=== PATIENT | female | born 1970 | race Caucasian/White ===

== ENCOUNTER 2019-08-28 15:48 | Emergency (ER) | payer OTHER ==
[~2019-08-28] VITALS: Ht 177.8 cm; Wt 127.0 kg
[~2019-08-28 15:48] MED LIST: ALBIPROI INH; ALBU90I INH; ALPR1 PO; Bactrim Ds Tab1 EACH PO; Benadryl 50 mg50 MG PO; CEPH500 PO; CHLGLU.12S; CLIN300 PO; CODGUAEL PO; CRUTCH4 USE; CYCL10 PO; Cleocin HCl300 MG PO; DOXY100 PO; DOXYCYCLINE; DULO30 PO; Esgic Tablet1 EACH PO; FLUSAL1005 IH; INDO25; LEVSOD75 PO; LORA1 PO; MICRONOR; NAPR500 PO; OXYACE5T PO; OXYC30ER PO; OXYC5 PO; PARO30 PO; PRED20 PO; PROM25 PO; Prednisone20 MG PO; RXCLIN PO; SULTRIDS PO; VANCOMYCIN; VERA80 PO; Ventolin/Prove6.7 GM INH; Zestril PO
[2019-08-28] MEDS ORDERED: Monodox100 MG PO (16:46)
[2019-08-28 16:53] LABS: BASOPHILS ABSOLUTE AUTO 0.03 K/mm3 (0.00-0.23); BASOPHILS PERCENT AUTO 0 % (0-2); EOSINOPHILS ABSOLUTE AUTO 0.43 K/mm3 (0.00-0.68); EOSINOPHILS PERCENT AUTO 5 % (0-6); Hematocrit 40.2 % (33.0-51.0); Hemoglobin 13.1 g/dL (11.5-16.0); IMMATURE GRAN ABSOLUTE AUTO 0.02 K/mm3 (0.00-0.10); IMMATURE GRAN PERCENT AUTO 0 % (0-1); LYMPHOCYTES ABSOLUTE AUTO 2.28 K/mm3 (0.84-5.20); LYMPHOCYTES PERCENT AUTO 27 % (21-46); MONOCYTES ABSOLUTE AUTO 0.53 K/mm3 (0.16-1.47); MONOCYTES PERCENT AUTO 6 % (4-13); Mean Corpuscular HGB 29.9 pg (26.0-34.0); Mean Corpuscular HGB Conc 32.6 g/dL (31.5-36.5); Mean Corpuscular Volume 92 fL (80-100); Mean Platelet Volume 10.4 fL (9.1-12.4); NEUTROPHILS ABSOLUTE AUTO 5.14 K/mm3 (1.96-9.15); NEUTROPHILS PERCENT AUTO 61 % (41-73); Platelet Count 259 K/mm3 (150-400); RDW Coefficient Variation 12.8 % (11.7-14.2); RDW Standard Deviation 43.1 fL (35.1-46.3); Red Blood Cell Count 4.38 M/mm3 (3.80-5.20); White Blood Cell Count 8.43 K/mm3 (4.00-11.30)
[2019-08-28 17:16] LABS: Alanine Aminotransfer (ALT/SGP 17 U/L (12-78); Albumin, Blood 3.7 g/dL (3.4-5.0); Albumin/Globulin Ratio 0.9 (0.8-1.8); Alk Phos 100 U/L (50-136); Anion Gap 4 mmol/L (6-16); Aspartate Aminotrans (AST/SGOT 20 U/L (12-37); Bilirubin, Total 0.4 mg/dL (0.1-1.0); Blood Urea Nitrogen 13 mg/dL (8-24); Bun/Creatinine Ratio 16.4 (12.0-20.0); CO2, Blood 28 mmol/L (21-32); Calcium, Blood 9.3 mg/dL (8.5-10.1); Chloride, Blood 106 mmol/L (98-108); Creatinine, Blood 0.79 mg/dL (0.40-1.00); Glomerular Filtration Rate >60 (60-); Glucose, Blood 70 mg/dL (70-99); Potassium, Blood 3.5 mmol/L (3.5-5.5); Sodium, Blood 138 mmol/L (136-145); Total Protein, Blood 7.7 g/dL (6.4-8.2)
== END 2019-08-28 17:03 | disposition home or self-care (01) ==
LOC: ER 15:48
PROVIDERS: Nurse Practitioner
DX: L03.115 Cellulitis of right lower limb (principal); J45.909 Unspecified asthma, uncomplicated; I10 Essential (primary) hypertension; Z88.0 Allergy status to penicillin; Z87.891 Personal history of nicotine dependence
CPT/HCPCS: 36415; 80053; 85025; 99283

== ENCOUNTER 2020-07-17 14:31 | Emergency (ER) | payer OTHER ==
[~2020-07-17 14:31] MED LIST changes: +ACETAMINOPHEN500 MG PO; +IBUP800 PO; +Monodox100 MG PO
== END 2020-07-17 16:16 | disposition left against medical advice (07) ==
LOC: ER 14:31
DX: Z53.21 Procedure and treatment not carried out due to patient leaving prior to being seen by health care provider (principal)

== ENCOUNTER 2020-09-17 00:11 | Emergency (ER) | payer OTHER ==
[~2020-09-17] VITALS: Ht 177.8 cm; Wt 103.0 kg
[2020-09-17] MEDS ORDERED: WATER PILL (00:35)
[2020-09-17] MEDS ORDERED: GABA100 PO (00:35)
== END 2020-09-17 02:42 | disposition home or self-care (01) ==
LOC: ER 00:11
DX: M25.511 Pain in right shoulder (principal); Z79.84 Long term (current) use of oral hypoglycemic drugs; Z79.899 Other long term (current) drug therapy; W10.9XXA Fall (on) (from) unspecified stairs and steps, initial encounter
CPT/HCPCS: 73562-LT; 99283-25

== ENCOUNTER 2021-03-03 10:26 | Inpatient (IN) | payer OTHER ==
[~2021-03-03] VITALS: Ht 177.8 cm; Wt 103.4 kg
[~2021-03-03 10:26] MED LIST changes: +GABA100 PO; +WATER PILL
[2021-03-03 11:52] LABS: Influenza A Negative (NEGATIVE); Influenza B Negative (NEGATIVE)
[2021-03-03 12:19] LABS: SARS-Cov-2 (COVID-19) PCR, MMC NEGATIVE (NEGATIVE)
[2021-03-03 13:32] LABS: BASOPHILS ABSOLUTE AUTO 0.03 K/mm3 (0.00-0.23); BASOPHILS PERCENT AUTO 0 % (0-2); EOSINOPHILS ABSOLUTE AUTO 0.58 K/mm3 (0.00-0.68); EOSINOPHILS PERCENT AUTO 5 % (0-6); Hematocrit 21.5 % (33.0-51.0); IMMATURE GRAN ABSOLUTE AUTO 0.05 K/mm3 (0.00-0.10); IMMATURE GRAN PERCENT AUTO 0 % (0-1); LYMPHOCYTES ABSOLUTE AUTO 1.12 K/mm3 (0.84-5.20); LYMPHOCYTES PERCENT AUTO 10 % (21-46); MONOCYTES ABSOLUTE AUTO 0.61 K/mm3 (0.16-1.47); MONOCYTES PERCENT AUTO 5 % (4-13); Mean Corpuscular HGB 27.7 pg (26.0-34.0); Mean Corpuscular HGB Conc 32.6 g/dL (31.5-36.5); Mean Corpuscular Volume 85 fL (80-100); Mean Platelet Volume 9.5 fL (9.1-12.4); NEUTROPHILS ABSOLUTE AUTO 9.19 K/mm3 (1.96-9.15); NEUTROPHILS PERCENT AUTO 79 % (41-73); Platelet Count 278 K/mm3 (150-400); RDW Coefficient Variation 13.9 % (11.7-14.2); RDW Standard Deviation 42.8 fL (35.1-46.3); Red Blood Cell Count 2.53 M/mm3 (3.80-5.20); White Blood Cell Count 11.58 K/mm3 (4.00-11.30)
[2021-03-03 13:56] LABS: Albumin, Blood 1.9 g/dL (3.4-5.0); Albumin/Globulin Ratio 0.4 (0.8-1.8); Bilirubin, Total 0.4 mg/dL (0.1-1.0); Calcium, Blood 7.8 mg/dL (8.5-10.1); Creatinine, Blood 4.76 mg/dL (0.40-1.00); Potassium, Blood 2.6 mmol/L (3.5-5.5); Total Protein, Blood 6.9 g/dL (6.4-8.2)
[2021-03-03] MEDS ORDERED: FURO20 PO (15:22)
[2021-03-03 17:35] LABS: IMMATURE RETIC FRACTION 17.5 % (2.3-16.0); RETICULOCYTE ABSOLUTE 0.035 M/mm3 (0.0200-0.1100); RETICULOCYTE COUNT PERCENT 1.49 % (0.50-2.50)
[2021-03-03 17:48] LABS: International Normalized Ratio 0.96; Prothrombin Time Results 10.4 Sec (9.7-11.5)
[2021-03-03 18:11] LABS: Magnesium, Blood 1.5 mg/dL (1.6-2.4); Percent Saturation 9.9 % (15.0-50.0)
--- NOTE | 2021-03-03 19:00 | NUR ---
Assumed care Received report from Gabriella ED RN. Patient arrived via gurney with 1 bag of personal belonging and cell phone. Settled to room. Second bag of NS and first K-rider infusing to LH IV. Self transferred to bed. Reports chills and requesting warm blanket. Temp checked, afebrile. Up to bedside commode c SBA. UA collected and sent to pharmacy. Urine appears yellow-orange with a tinge of pink. There is a oneill ordered, patient reports no issues with urinating. Called Dr. Harper to clarify this order. Received T.O. to bladder scan d/t MARGARITA, if > 300cc, place oneill otherwise may d/c oneill. Call light near, bed alarm on, bed in lowest position.
[2021-03-03 19:58] LABS: BASOPHILS ABSOLUTE AUTO 0.03 K/mm3 (0.00-0.23); BASOPHILS PERCENT AUTO 0 % (0-2); EOSINOPHILS ABSOLUTE AUTO 0.67 K/mm3 (0.00-0.68); EOSINOPHILS PERCENT AUTO 6 % (0-6); Hemoglobin 6.6 g/dL (11.5-16.0); IMMATURE GRAN ABSOLUTE AUTO 0.05 K/mm3 (0.00-0.10); IMMATURE GRAN PERCENT AUTO 0 % (0-1); LYMPHOCYTES ABSOLUTE AUTO 1.37 K/mm3 (0.84-5.20); LYMPHOCYTES PERCENT AUTO 11 % (21-46); MONOCYTES ABSOLUTE AUTO 0.69 K/mm3 (0.16-1.47); MONOCYTES PERCENT AUTO 6 % (4-13); Mean Corpuscular HGB 27.6 pg (26.0-34.0); Mean Corpuscular HGB Conc 31.4 g/dL (31.5-36.5); Mean Corpuscular Volume 88 fL (80-100); Mean Platelet Volume 9.4 fL (9.1-12.4); NEUTROPHILS ABSOLUTE AUTO 9.38 K/mm3 (1.96-9.15); NEUTROPHILS PERCENT AUTO 77 % (41-73); Platelet Count 259 K/mm3 (150-400); RDW Coefficient Variation 14.1 % (11.7-14.2); RDW Standard Deviation 45.4 fL (35.1-46.3); Red Blood Cell Count 2.39 M/mm3 (3.80-5.20); White Blood Cell Count 12.19 K/mm3 (4.00-11.30)
[2021-03-03 20:14] LABS: Bun/Creatinine Ratio 13.5 (12.0-20.0); Calcium, Blood 7.1 mg/dL (8.5-10.1); Creatinine, Blood 4.53 mg/dL (0.40-1.00); Potassium, Blood 3.2 mmol/L (3.5-5.5)
[2021-03-03 20:15] LABS: Appearance, Urine Turbid (Clear); Bilirubin, Urine Neg (Neg); Blood, Urine 5+ (Neg); Color, Urine Brown (P-Yellow); Glucose Qualitative, Urine Neg (Neg); Ketones, Urine Neg (Neg); Leukocyte Esterase, Urine 1+ (Neg); Nitrite, Urine Neg (Neg); Protein, Urine 4+ (Neg); Specific Gravity, Urine 1.015 (1.003-1.022); Urobilinogen, Urine NORM (Normal)
[2021-03-03 20:33] LABS: Amorphous Light (0-Heavy); Bacteria Many /hpf; Red Blood Cells, Urine 50-100 /hpf (0-2); Squamous Epithelial Cells Mod /hpf (Few)
[2021-03-03 20:36] LABS: U Amphetamine Screen DETECTED; U Barbituate Screen Not Detected; U Benzodiazapine Screen Not Detected; U Buprenorphine Screen Not Detected; U Cannabinoids Screen Not Detected; U Cocaine Screen Not Detected; U Methadone Screen Not Detected; U Methamphetamine Screen Not Detected; U Opiates Screen Not Detected; U Oxycodone Screen Not Detected; U Phencyclidine Screen Not Detected; U Propoxyphene Screen Not Detected
--- NOTE | 2021-03-04 00:13 | NUR ---
PATIENT COMPLAINS OF TENDERNESS AT IV SITE. LINE REMOVED.
--- NOTE | 2021-03-04 04:38 | NUR ---
RECEIVED PATIENT IN BED AAOX3. SHE DENIES ANY DISCOMFORT. IVF INFUSING. KCL IV NOT GIVEN PER MD'S ORDER. KCL PO GIVEN. TYLENOL GIVEN FOR INCREASED TEMP. PATIENT IS AFEBRILE NOW. 1 UNIT OF PRBC TRANSFUSED. LUNGS WITH DIMINISHED BREATH SOUNDS. OCCASIONAL NON-PRODUCTIVE COUGH. PATIENT IS AT TIMES RESTLESS, ANXIOUS, EASILY IRRITATED. ASSISTED WITH ADLS FOR COMFORT. SAFETY ROUNDS IN PROGRESS. NO ACUTE DISTRESS.
[2021-03-04 05:33] LABS: BASOPHILS ABSOLUTE AUTO 0.03 K/mm3 (0.00-0.23); BASOPHILS PERCENT AUTO 0 % (0-2); EOSINOPHILS ABSOLUTE AUTO 0.93 K/mm3 (0.00-0.68); EOSINOPHILS PERCENT AUTO 7 % (0-6); Hematocrit 22.6 % (33.0-51.0); Hemoglobin 7.4 g/dL (11.5-16.0); IMMATURE GRAN ABSOLUTE AUTO 0.06 K/mm3 (0.00-0.10); IMMATURE GRAN PERCENT AUTO 1 % (0-1); LYMPHOCYTES ABSOLUTE AUTO 1.75 K/mm3 (0.84-5.20); LYMPHOCYTES PERCENT AUTO 14 % (21-46); MONOCYTES ABSOLUTE AUTO 0.74 K/mm3 (0.16-1.47); MONOCYTES PERCENT AUTO 6 % (4-13); Mean Corpuscular HGB 28.2 pg (26.0-34.0); Mean Corpuscular HGB Conc 32.7 g/dL (31.5-36.5); Mean Corpuscular Volume 86 fL (80-100); Mean Platelet Volume 9.5 fL (9.1-12.4); NEUTROPHILS ABSOLUTE AUTO 9.17 K/mm3 (1.96-9.15); NEUTROPHILS PERCENT AUTO 72 % (41-73); Platelet Count 283 K/mm3 (150-400); RDW Coefficient Variation 14.3 % (11.7-14.2); RDW Standard Deviation 44.7 fL (35.1-46.3); Red Blood Cell Count 2.62 M/mm3 (3.80-5.20); White Blood Cell Count 12.68 K/mm3 (4.00-11.30)
[2021-03-04 05:59] LABS: Bun/Creatinine Ratio 13.2 (12.0-20.0); Calcium, Blood 7.6 mg/dL (8.5-10.1); Creatinine, Blood 4.63 mg/dL (0.40-1.00); Potassium, Blood 3.2 mmol/L (3.5-5.5)
[2021-03-04 10:11] LABS: Hematocrit 20.4 % (33.0-51.0); Hemoglobin 6.7 g/dL (11.5-16.0)
[2021-03-04 10:19] LABS: C DIFFICILE DNA NEGATIVE (Negative)
[2021-03-04 10:52] LABS: Stool Occult Blood Guaiac 1 Neg (Neg)
[2021-03-04 16:58] LABS: Appearance, Urine Hazy (Clear); Bilirubin, Urine Neg (Neg); Blood, Urine 5+ (Neg); Color, Urine Amber (P-Yellow); Glucose Qualitative, Urine Neg (Neg); Ketones, Urine Neg (Neg); Leukocyte Esterase, Urine 1+ (Neg); Nitrite, Urine Neg (Neg); Protein, Urine 3+ (Neg); Urobilinogen, Urine NORM (Normal)
[2021-03-04 17:17] LABS: Bacteria Mod /hpf; Red Blood Cells, Urine 50-100 /hpf (0-2); Squamous Epithelial Cells Few /hpf (Few)
[2021-03-04 17:18] LABS: Amorphous Light (0-Heavy); Mucus Light (0-Heavy)
--- NOTE | 2021-03-04 18:39 | NUR ---
SHIFT SUMMARY: NO ACUTE EVENTS. NO EVENTS ON TELEMETRY, SR 80-90'S. STOOL NEGATIVE FOR BLOOD. 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 PRBC'S TRANSFUSING NOW, WILL NEED LABS DRAWN AFTER, POWERGLIDE IN PERRI DRAWS SLUGGISHLY. UP TO BSC WITH 1 PERSON ASSIST. A&O X 2, STRANGE AFFECT. DR NOGUERA SAW PATIENT THIS AFTERNOON.
[2021-03-04 20:43] LABS: BASOPHILS ABSOLUTE AUTO 0.04 K/mm3 (0.00-0.23); BASOPHILS PERCENT AUTO 0 % (0-2); EOSINOPHILS ABSOLUTE AUTO 0.74 K/mm3 (0.00-0.68); EOSINOPHILS PERCENT AUTO 6 % (0-6); Hematocrit 22.2 % (33.0-51.0); Hemoglobin 7.3 g/dL (11.5-16.0); IMMATURE GRAN ABSOLUTE AUTO 0.07 K/mm3 (0.00-0.10); IMMATURE GRAN PERCENT AUTO 1 % (0-1); LYMPHOCYTES ABSOLUTE AUTO 1.08 K/mm3 (0.84-5.20); LYMPHOCYTES PERCENT AUTO 9 % (21-46); MONOCYTES ABSOLUTE AUTO 0.76 K/mm3 (0.16-1.47); MONOCYTES PERCENT AUTO 6 % (4-13); Mean Corpuscular HGB 28.2 pg (26.0-34.0); Mean Corpuscular HGB Conc 32.9 g/dL (31.5-36.5); Mean Corpuscular Volume 86 fL (80-100); Mean Platelet Volume 9.7 fL (9.1-12.4); NEUTROPHILS ABSOLUTE AUTO 9.21 K/mm3 (1.96-9.15); NEUTROPHILS PERCENT AUTO 77 % (41-73); Platelet Count 214 K/mm3 (150-400); RDW Coefficient Variation 14.6 % (11.7-14.2); RDW Standard Deviation 45.4 fL (35.1-46.3); Red Blood Cell Count 2.59 M/mm3 (3.80-5.20)
[2021-03-04 20:46] LABS: Bun/Creatinine Ratio 12.7 (12.0-20.0); Calcium, Blood 7.6 mg/dL (8.5-10.1); Creatinine, Blood 4.89 mg/dL (0.40-1.00); Potassium, Blood 3.2 mmol/L (3.5-5.5)
[2021-03-04 21:01] LABS: Magnesium, Blood 1.6 mg/dL (1.6-2.4)
[2021-03-05 05:53] LABS: BASOPHILS ABSOLUTE AUTO 0.03 K/mm3 (0.00-0.23); BASOPHILS PERCENT AUTO 0 % (0-2); EOSINOPHILS ABSOLUTE AUTO 0.96 K/mm3 (0.00-0.68); EOSINOPHILS PERCENT AUTO 7 % (0-6); IMMATURE GRAN ABSOLUTE AUTO 0.08 K/mm3 (0.00-0.10); IMMATURE GRAN PERCENT AUTO 1 % (0-1); LYMPHOCYTES ABSOLUTE AUTO 1.24 K/mm3 (0.84-5.20); LYMPHOCYTES PERCENT AUTO 9 % (21-46); MONOCYTES ABSOLUTE AUTO 0.92 K/mm3 (0.16-1.47); MONOCYTES PERCENT AUTO 7 % (4-13); Mean Corpuscular HGB 28.4 pg (26.0-34.0); Mean Corpuscular HGB Conc 33.1 g/dL (31.5-36.5); Mean Corpuscular Volume 86 fL (80-100); Mean Platelet Volume 9.3 fL (9.1-12.4); NEUTROPHILS ABSOLUTE AUTO 10.43 K/mm3 (1.96-9.15); NEUTROPHILS PERCENT AUTO 76 % (41-73); Platelet Count 251 K/mm3 (150-400); RDW Coefficient Variation 14.7 % (11.7-14.2); RDW Standard Deviation 45.7 fL (35.1-46.3); Red Blood Cell Count 1.97 M/mm3 (3.80-5.20); White Blood Cell Count 13.66 K/mm3 (4.00-11.30)
[2021-03-05 06:00] LABS: Hematocrit 16.9 % (33.0-51.0)
[2021-03-05 06:01] LABS: Hemoglobin 5.6 g/dL (11.5-16.0)
--- NOTE | 2021-03-05 06:13 | NUR ---
RECEIVED CALL FROM LAB REGARDING CRITICAL HEMOGLOBIN AND HEMATOCRIT. DR. DAVIES MADE AWARE. ORDER GIVEN FOR RED BLOOD CELL. PATIENT'S CONDITION STABLE. NO SIGNS OF BLEEDING NOTED.
[2021-03-05 06:20] LABS: Albumin, Blood 1.6 g/dL (3.4-5.0); Anion Gap 12 mmol/L (6-16); Blood Urea Nitrogen 62 mg/dL (8-24); Bun/Creatinine Ratio 12.3 (12.0-20.0); CO2, Blood 22 mmol/L (21-32); Calcium, Blood 7.6 mg/dL (8.5-10.1); Chloride, Blood 106 mmol/L (98-108); Creatinine, Blood 5.06 mg/dL (0.40-1.00); Glomerular Filtration Rate 9 (60-); Glucose, Blood 101 mg/dL (70-99); Phosphorus, Blood 5.5 mg/dL (2.5-4.9); Sodium, Blood 140 mmol/L (136-145); Uric Acid, Blood 6.6 mg/dL (2.6-6.0)
--- NOTE | 2021-03-05 06:26 | NUR ---
RECEIVED PATIENT IN BED AAOX3. SHE DENIES ANY DISCOMFORT. LUNGS WITH DIMINISHED BREATH SOUNDS. INTERMITTENT MOIST NON-PRODUCTIVE COUGH REMAINS. UA COLLECTED AND SENT. DR. DAVIES NOTIFIED OF CRITICAL HEMOGLOBIN AND HEMATOCRIT. 2 UNITS OF PRBC TO BE TRANSFUSED. NO S/S OF BLEEDING NOTED. WILL CONTINUE TO MONITOR.
--- NOTE | 2021-03-05 15:31 | NUR ---
SHIFT SUMMARY: PT ALERT AND ORIENTED TO ALL EXXCEPT DAY OF MONTH. PT ABLE TO MAKE NEEDS KNOWN. TRANSFERS INDEPENDENTLY TO BEDSIDE COMMODE. PT RECEIVED 2 UNITS PRBC AND POTASSIUM REPLACEMENT. PT NAPPING INTERMITTENTLY THROUGHOUT MY SHIFT.
[2021-03-05 17:32] LABS: Hematocrit 27.4 % (33.0-51.0); Hemoglobin 8.9 g/dL (11.5-16.0); Mean Corpuscular HGB 27.5 pg (26.0-34.0); Mean Corpuscular HGB Conc 32.5 g/dL (31.5-36.5); Mean Corpuscular Volume 85 fL (80-100); RDW Coefficient Variation 16.4 % (11.7-14.2); RDW Standard Deviation 50.6 fL (35.1-46.3); Red Blood Cell Count 3.24 M/mm3 (3.80-5.20)
[2021-03-05 17:38] LABS: Mean Platelet Volume 10.3 fL (9.1-12.4); Platelet Count 241 K/mm3 (150-400)
[2021-03-05 17:56] LABS: Magnesium, Blood 1.7 mg/dL (1.6-2.4); Phosphorus, Blood 5.4 mg/dL (2.5-4.9)
[2021-03-05 17:58] LABS: Bilirubin, Direct 0.3 mg/dL (0.0-0.3); Bilirubin, Indirect 0.3 mg/dL (0.1-0.7); Bilirubin, Total 0.6 mg/dL (0.1-1.0)
[2021-03-05 18:07] LABS: BASOPHILS PERCENT MAN 0 % (0-2); EOSINOPHILS ABSOLUTE MAN 0.26 K/mm3 (0.00-0.68); EOSINOPHILS PERCENT MAN 2 % (0-6); LYMPHOCYTES ABSOLUTE MAN 1.45 K/mm3 (0.84-5.20); LYMPHOCYTES PERCENT MAN 11 % (21-46); MONOCYTES ABSOLUTE MAN 0.39 K/mm3 (0.16-1.47); MONOCYTES PERCENT MAN 3 % (4-13); NEUTROPHILS ABSOLUTE MAN 11.08 K/mm3 (1.96-9.15); SEG NEUTROPHILS PERCENT MAN 84 % (41-73); TOTAL CELLS COUNTED 100
--- NOTE | 2021-03-06 05:21 | NUR ---
PT SLEPT FOR JUST A FEW HOURS THIS NIGHT AND COUGH WAS TREATED PER EMAR. PT WAS ALERT TO SELF AND SITUATION BUT NOT DATE AND TIME. PT MADE SEXUAL COMMENTS ABOUT HER VAGINA, SANG MADONAS LIKE A VERGIN AND STATES "COME OVER HERE AND SPIT IN MY MOUTH." PT IS DIM WITH CRACKLES AND HACKING COUGH. WILL CONTINUE TO MONITOR.
[2021-03-06 07:58] LABS: BASOPHILS ABSOLUTE AUTO 0.02 K/mm3 (0.00-0.23); BASOPHILS PERCENT AUTO 0 % (0-2); EOSINOPHILS ABSOLUTE AUTO 1.06 K/mm3 (0.00-0.68); EOSINOPHILS PERCENT AUTO 9 % (0-6); Hematocrit 23.7 % (33.0-51.0); IMMATURE GRAN ABSOLUTE AUTO 0.06 K/mm3 (0.00-0.10); IMMATURE GRAN PERCENT AUTO 1 % (0-1); LYMPHOCYTES ABSOLUTE AUTO 1.21 K/mm3 (0.84-5.20); LYMPHOCYTES PERCENT AUTO 10 % (21-46); MONOCYTES ABSOLUTE AUTO 0.76 K/mm3 (0.16-1.47); MONOCYTES PERCENT AUTO 6 % (4-13); Mean Corpuscular HGB 28.1 pg (26.0-34.0); Mean Corpuscular HGB Conc 33.8 g/dL (31.5-36.5); Mean Corpuscular Volume 83 fL (80-100); Mean Platelet Volume 9.6 fL (9.1-12.4); NEUTROPHILS ABSOLUTE AUTO 9.08 K/mm3 (1.96-9.15); NEUTROPHILS PERCENT AUTO 75 % (41-73); Platelet Count 220 K/mm3 (150-400); RDW Coefficient Variation 16.5 % (11.7-14.2); RDW Standard Deviation 50.2 fL (35.1-46.3); Red Blood Cell Count 2.85 M/mm3 (3.80-5.20); White Blood Cell Count 12.19 K/mm3 (4.00-11.30)
[2021-03-06 08:09] LABS: COMPLEMENT C3, SERUM 142 mg/dL (82-167); COMPLEMENT C4, SERUM 20 mg/dL (12-38)
[2021-03-06 08:23] LABS: Albumin, Blood 1.5 g/dL (3.4-5.0); Albumin/Globulin Ratio 0.3 (0.8-1.8); Bilirubin, Total 0.5 mg/dL (0.1-1.0); Bun/Creatinine Ratio 12.6 (12.0-20.0); Calcium, Blood 7.2 mg/dL (8.5-10.1); Creatinine, Blood 5.48 mg/dL (0.40-1.00); Globulin, Blood 4.9 g/dL (2.2-4.0); Potassium, Blood 3.1 mmol/L (3.5-5.5); Total Protein, Blood 6.4 g/dL (6.4-8.2)
[2021-03-06 14:43] LABS: Albumin, Blood 1.6 g/dL (3.4-5.0); Anion Gap 12 mmol/L (6-16); Blood Urea Nitrogen 65 mg/dL (8-24); Bun/Creatinine Ratio 12.3 (12.0-20.0); CO2, Blood 19 mmol/L (21-32); Calcium, Blood 7.6 mg/dL (8.5-10.1); Chloride, Blood 104 mmol/L (98-108); Creatinine, Blood 5.28 mg/dL (0.40-1.00); Glomerular Filtration Rate 9 (60-); Glucose, Blood 108 mg/dL (70-99); Phosphorus, Blood 6.3 mg/dL (2.5-4.9); Potassium, Blood 3.5 mmol/L (3.5-5.5); Sodium, Blood 135 mmol/L (136-145)
--- NOTE | 2021-03-06 17:39 | NUR ---
PATIENT IS ALERT AND ORIENTED AND COOPERATIVE WITH CARE. COMPLAINS OF HEADACHE, MEDICATED PER EMAR. 24HR URINE STARTED TODAY AT 1300. STRICT I&0'S. WILL CONTINUE TO MONITOR
[2021-03-06 17:41] LABS: Hematocrit 24.5 % (33.0-51.0)
--- NOTE | 2021-03-07 02:54 | NUR ---
PATIENT IS ALERT AND ORIENTED X3. PATIENT NOTED WITH COUGHING WITH SOME BLOOD IN HER SPUTUM. PATIENT WAS BENSONATATE 200MG FOR COUGH WITH MINIMAL EFFECT. PATIENTCONTINUED WITH COUGHING AND BLOOD TINGED SPUTUM. DR. DEL CASTILLO CALLED AND NOTIFIED WITH NEW ORDER FOR PHENEGAN WITH CODEIN 5ML EVERY 6 HOURS WITH MINIMAL EFFECT. PATIENT COMPLAINT OF RIGHT KNEE PAIN TYLENOL 650MG GIVEN PATIENT WITH GOOD EFFECT. PATIENT CONTINUED WITH 24 HOUR URINE COLLECTION.
[2021-03-07 05:23] LABS: BASOPHILS ABSOLUTE AUTO 0.02 K/mm3 (0.00-0.23); BASOPHILS PERCENT AUTO 0 % (0-2); EOSINOPHILS ABSOLUTE AUTO 1.08 K/mm3 (0.00-0.68); EOSINOPHILS PERCENT AUTO 8 % (0-6); Hematocrit 22.4 % (33.0-51.0); Hemoglobin 7.5 g/dL (11.5-16.0); IMMATURE GRAN ABSOLUTE AUTO 0.08 K/mm3 (0.00-0.10); IMMATURE GRAN PERCENT AUTO 1 % (0-1); LYMPHOCYTES ABSOLUTE AUTO 1.11 K/mm3 (0.84-5.20); LYMPHOCYTES PERCENT AUTO 9 % (21-46); MONOCYTES ABSOLUTE AUTO 0.61 K/mm3 (0.16-1.47); MONOCYTES PERCENT AUTO 5 % (4-13); Mean Corpuscular HGB 28.1 pg (26.0-34.0); Mean Corpuscular HGB Conc 33.5 g/dL (31.5-36.5); Mean Corpuscular Volume 84 fL (80-100); Mean Platelet Volume 10.3 fL (9.1-12.4); NEUTROPHILS ABSOLUTE AUTO 9.89 K/mm3 (1.96-9.15); NEUTROPHILS PERCENT AUTO 77 % (41-73); Platelet Count 252 K/mm3 (150-400); RDW Coefficient Variation 16.5 % (11.7-14.2); RDW Standard Deviation 50.6 fL (35.1-46.3); Red Blood Cell Count 2.67 M/mm3 (3.80-5.20); White Blood Cell Count 12.79 K/mm3 (4.00-11.30)
[2021-03-07 05:55] LABS: Albumin, Blood 1.5 g/dL (3.4-5.0); Albumin/Globulin Ratio 0.3 (0.8-1.8); Bilirubin, Total 0.4 mg/dL (0.1-1.0); Bun/Creatinine Ratio 12.6 (12.0-20.0); Calcium, Blood 7.6 mg/dL (8.5-10.1); Creatinine, Blood 5.73 mg/dL (0.40-1.00); Potassium, Blood 3.3 mmol/L (3.5-5.5); Total Protein, Blood 6.5 g/dL (6.4-8.2)
[2021-03-07 15:49] LABS: Protein, Urine Quantitative 255.4 mg/dL (0.0-11.9)
[2021-03-08 06:06] LABS: BASOPHILS ABSOLUTE AUTO 0.02 K/mm3 (0.00-0.23); BASOPHILS PERCENT AUTO 0 % (0-2); EOSINOPHILS ABSOLUTE AUTO 1.46 K/mm3 (0.00-0.68); EOSINOPHILS PERCENT AUTO 12 % (0-6); Hematocrit 21.6 % (33.0-51.0); Hemoglobin 7.1 g/dL (11.5-16.0); IMMATURE GRAN ABSOLUTE AUTO 0.07 K/mm3 (0.00-0.10); IMMATURE GRAN PERCENT AUTO 1 % (0-1); LYMPHOCYTES PERCENT AUTO 8 % (21-46); MONOCYTES ABSOLUTE AUTO 0.71 K/mm3 (0.16-1.47); MONOCYTES PERCENT AUTO 6 % (4-13); Mean Corpuscular HGB 27.7 pg (26.0-34.0); Mean Corpuscular HGB Conc 32.9 g/dL (31.5-36.5); Mean Corpuscular Volume 84 fL (80-100); Mean Platelet Volume 10.2 fL (9.1-12.4); NEUTROPHILS ABSOLUTE AUTO 8.62 K/mm3 (1.96-9.15); NEUTROPHILS PERCENT AUTO 73 % (41-73); Platelet Count 296 K/mm3 (150-400); RDW Coefficient Variation 16.7 % (11.7-14.2); RDW Standard Deviation 51.3 fL (35.1-46.3); Red Blood Cell Count 2.56 M/mm3 (3.80-5.20); White Blood Cell Count 11.88 K/mm3 (4.00-11.30)
[2021-03-08 06:22] LABS: International Normalized Ratio 1.01; Prothrombin Time Results 10.9 Sec (9.7-11.5)
[2021-03-08 06:25] LABS: Albumin, Blood 1.5 g/dL (3.4-5.0); Anion Gap 11 mmol/L (6-16); Blood Urea Nitrogen 73 mg/dL (8-24); Bun/Creatinine Ratio 12.1 (12.0-20.0); CO2, Blood 20 mmol/L (21-32); Calcium, Blood 7.8 mg/dL (8.5-10.1); Chloride, Blood 102 mmol/L (98-108); Creatinine, Blood 6.05 mg/dL (0.40-1.00); Glomerular Filtration Rate 7 (60-); Glucose, Blood 106 mg/dL (70-99); Magnesium, Blood 1.8 mg/dL (1.6-2.4); Phosphorus, Blood 7.3 mg/dL (2.5-4.9); Potassium, Blood 3.5 mmol/L (3.5-5.5); Sodium, Blood 133 mmol/L (136-145)
--- NOTE | 2021-03-08 06:42 | NUR ---
SHIFT SUMMARRY PATIENT COMPLAINS OF LEG PAIN . TREATED WITH PRN TYLENOL WITH GOOD EFFECTS. LOTS OF DRY HARSH AND NON PRODUCTIVE COUGHING DURING THE NIGHT. PRN PHERNEGEN WITH CO DIENE AND TESSALON PEARLS ADMINISTERED WITH SOME RELIEF.NO ACUTE MEDICAL CHANGES THIS SHIFT.
--- NOTE | 2021-03-08 18:56 | NUR ---
Alert and oriented x3 , able to make needs known. Tessalon 200 mg po was given for cough , it was effective. 1 unit RBC was given ,no adverse effects noted. vital signs are stable.Continue on ABO therapy for PNA, NO adverse effect noted. one persn assist with ADLs, used bedside with SBA. BILATERAL upper and lower extremity edema noted. continue to monitor.
--- NOTE | 2021-03-09 04:59 | NUR ---
END OF SHIFT REPORT PATIENT STILL COUGHING REAL HARD. HAD HER COUGH MED, SEE MADHAV. OTHERWISE SHE WAS MADE COMFORTABLE.
[2021-03-09 08:34] LABS: BASOPHILS ABSOLUTE AUTO 0.02 K/mm3 (0.00-0.23); BASOPHILS PERCENT AUTO 0 % (0-2); EOSINOPHILS PERCENT AUTO 0 % (0-6); Hematocrit 24.7 % (33.0-51.0); Hemoglobin 8.1 g/dL (11.5-16.0); IMMATURE GRAN PERCENT AUTO 1 % (0-1); LYMPHOCYTES ABSOLUTE AUTO 0.68 K/mm3 (0.84-5.20); LYMPHOCYTES PERCENT AUTO 5 % (21-46); MONOCYTES PERCENT AUTO 1 % (4-13); Mean Corpuscular HGB Conc 32.8 g/dL (31.5-36.5); Mean Corpuscular Volume 86 fL (80-100); Mean Platelet Volume 10.5 fL (9.1-12.4); NEUTROPHILS ABSOLUTE AUTO 13.98 K/mm3 (1.96-9.15); NEUTROPHILS PERCENT AUTO 93 % (41-73); Platelet Count 402 K/mm3 (150-400); RDW Coefficient Variation 16.8 % (11.7-14.2); RDW Standard Deviation 51.7 fL (35.1-46.3); Red Blood Cell Count 2.89 M/mm3 (3.80-5.20); White Blood Cell Count 14.98 K/mm3 (4.00-11.30)
[2021-03-09 08:42] LABS: International Normalized Ratio 0.98; Prothrombin Time Results 10.3 Sec (9.7-11.5)
[2021-03-09 08:53] LABS: Albumin, Blood 1.6 g/dL (3.4-5.0); Anion Gap 12 mmol/L (6-16); Blood Urea Nitrogen 87 mg/dL (8-24); Bun/Creatinine Ratio 14.1 (12.0-20.0); CO2, Blood 18 mmol/L (21-32); Chloride, Blood 101 mmol/L (98-108); Creatinine, Blood 6.15 mg/dL (0.40-1.00); Glomerular Filtration Rate 7 (60-); Glucose, Blood 163 mg/dL (70-99); Potassium, Blood 4.1 mmol/L (3.5-5.5); Sodium, Blood 131 mmol/L (136-145)
[2021-03-09 08:55] LABS: Phosphorus, Blood 8.3 mg/dL (2.5-4.9)
[2021-03-09 09:08] LABS: ANTIGLOMERULAR BM AB 53 units (0-20)
[2021-03-09 15:08] LABS: A/G RATIO 0.4 (0.7-1.7); ALBUMIN 1.7 g/dL (2.9-4.4); ALPHA-1-GLOBULIN 0.5 g/dL (0.0-0.4); ALPHA-2-GLOBULIN 1.1 g/dL (0.4-1.0); BETA GLOBULIN 0.9 g/dL (0.7-1.3); GAMMA GLOBULIN 1.4 g/dL (0.4-1.8); GLOBULIN, TOTAL 3.8 g/dL (2.2-3.9); M-SPIKE Not Observed g/dL (Not Observed); PROTEIN, TOTAL, SERUM 5.5 g/dL (6.0-8.5)
[2021-03-09 16:13] LABS: BASOPHILS ABSOLUTE AUTO 0.01 K/mm3 (0.00-0.23); BASOPHILS PERCENT AUTO 0 % (0-2); EOSINOPHILS PERCENT AUTO 0 % (0-6); Hematocrit 22.7 % (33.0-51.0); Hemoglobin 7.7 g/dL (11.5-16.0); IMMATURE GRAN ABSOLUTE AUTO 0.15 K/mm3 (0.00-0.10); IMMATURE GRAN PERCENT AUTO 1 % (0-1); LYMPHOCYTES ABSOLUTE AUTO 0.81 K/mm3 (0.84-5.20); LYMPHOCYTES PERCENT AUTO 4 % (21-46); MONOCYTES ABSOLUTE AUTO 0.34 K/mm3 (0.16-1.47); MONOCYTES PERCENT AUTO 2 % (4-13); Mean Corpuscular HGB 28.4 pg (26.0-34.0); Mean Corpuscular HGB Conc 33.9 g/dL (31.5-36.5); Mean Corpuscular Volume 84 fL (80-100); Mean Platelet Volume 10.4 fL (9.1-12.4); NEUTROPHILS PERCENT AUTO 94 % (41-73); Platelet Count 441 K/mm3 (150-400); RDW Coefficient Variation 16.9 % (11.7-14.2); Red Blood Cell Count 2.71 M/mm3 (3.80-5.20); White Blood Cell Count 20.21 K/mm3 (4.00-11.30)
--- NOTE | 2021-03-09 18:42 | NUR ---
Alert and oriented x3, vital signs are stable. Had done renal Biopsy and result pending. C/o nausea post renal biopsy , zofran 4 mg IV was given and was effective . Denies any headache , SOB ,and dizziness. Bilateral lower extemities edema noted. Plan to permanent cath place tomorrow and possible dialysis . Continue to monitor.
[2021-03-10 01:09] LABS: HBSAG SCREEN Negative (Negative); HEP B CORE AB, TOT Negative (Negative); HEP C VIRUS AB <0.1 (0.0-0.9); HIV SCREEN 4TH GENERATION WRFX Non Reactive (Non Reactive)
--- NOTE | 2021-03-10 04:56 | NUR ---
END OF SHIFT SUMMARY PATIENT HAD A FAIR SHIFT SILL COUGHING BUT SHE GOT HER COUGH MEDICATION. VSS STABLE THROUGHOUT THE SHIFT
[2021-03-10 05:50] LABS: Albumin, Blood 1.6 g/dL (3.4-5.0); Anion Gap 13 mmol/L (6-16); Blood Urea Nitrogen 103 mg/dL (8-24); Bun/Creatinine Ratio 15.7 (12.0-20.0); CO2, Blood 16 mmol/L (21-32); Calcium, Blood 7.8 mg/dL (8.5-10.1); Chloride, Blood 100 mmol/L (98-108); Creatinine, Blood 6.54 mg/dL (0.40-1.00); Glomerular Filtration Rate 7 (60-); Glucose, Blood 176 mg/dL (70-99); Potassium, Blood 5.6 mmol/L (3.5-5.5); Sodium, Blood 129 mmol/L (136-145)
[2021-03-10 05:52] LABS: Phosphorus, Blood 8.1 mg/dL (2.5-4.9)
[2021-03-10 06:20] LABS: BASOPHILS ABSOLUTE AUTO 0.02 K/mm3 (0.00-0.23); BASOPHILS PERCENT AUTO 0 % (0-2); EOSINOPHILS PERCENT AUTO 0 % (0-6); Hemoglobin 7.6 g/dL (11.5-16.0); IMMATURE GRAN ABSOLUTE AUTO 0.17 K/mm3 (0.00-0.10); IMMATURE GRAN PERCENT AUTO 1 % (0-1); LYMPHOCYTES PERCENT AUTO 5 % (21-46); MONOCYTES ABSOLUTE AUTO 0.33 K/mm3 (0.16-1.47); MONOCYTES PERCENT AUTO 2 % (4-13); Mean Corpuscular HGB 28.4 pg (26.0-34.0); Mean Corpuscular Volume 86 fL (80-100); Mean Platelet Volume 10.4 fL (9.1-12.4); NEUTROPHILS ABSOLUTE AUTO 17.29 K/mm3 (1.96-9.15); NEUTROPHILS PERCENT AUTO 92 % (41-73); Platelet Count 463 K/mm3 (150-400); RDW Coefficient Variation 17.2 % (11.7-14.2); RDW Standard Deviation 52.4 fL (35.1-46.3); Red Blood Cell Count 2.68 M/mm3 (3.80-5.20); White Blood Cell Count 18.71 K/mm3 (4.00-11.30)
[2021-03-10 14:10] LABS: M-SPIKE, % Not Observed % (Not Observed); PROTEIN,TOTAL,URINE 193.6 mg/dL (Not Estab.)
--- NOTE | 2021-03-10 17:39 | NUR ---
PT AOX4 BUT CAN BE VERY ANXIOUS OR AT TIMES NOT MAKE SENSE. PT HAS BEEN 1 PERSON TO BEDSIDE COMMODE. PERMA CATH PLACED AND CURRENTLY RECIEVING DIALYSIS. PT COOPERATIVE OF CARE. PT CONTINUES TO COUGH AND IS TREATED PER EMAR. NO DISTRESS NOTED WILL CONTINUE TO MONITOR.
--- NOTE | 2021-03-11 05:13 | NUR ---
END SHIFT SUMMARY PATIENT WAS RESTLESS AND WAS HURTING, COUGHING AT THE BEGINNING OF THE SHIFT SHE WAS GIVEN SOME PAIN MEDCATION, AND COUGH SYRUP PER EMAR
[2021-03-11 09:44] LABS: Albumin, Blood 1.9 g/dL (3.4-5.0); Anion Gap 10 mmol/L (6-16); Blood Urea Nitrogen 72 mg/dL (8-24); Bun/Creatinine Ratio 16.2 (12.0-20.0); CO2, Blood 26 mmol/L (21-32); Calcium, Blood 8.2 mg/dL (8.5-10.1); Chloride, Blood 96 mmol/L (98-108); Creatinine, Blood 4.44 mg/dL (0.40-1.00); Glomerular Filtration Rate 10 (60-); Glucose, Blood 149 mg/dL (70-99); Phosphorus, Blood 6.5 mg/dL (2.5-4.9); Potassium, Blood 3.9 mmol/L (3.5-5.5); Sodium, Blood 132 mmol/L (136-145)
[2021-03-11 13:09] LABS: ANA DIRECT Negative (Negative); ANTIMYELOPEROXIDASE (MPO) ABS <9.0 U/mL (0.0-9.0); ANTIPROTEINASE 3 (PR-3) ABS >100.0 U/mL (0.0-3.5); ATYPICAL PANCA <1:20 titer (Neg:<1:20); PERINUCLEAR (P-ANCA) <1:20 titer (Neg:<1:20)
--- NOTE | 2021-03-11 15:59 | NUR ---
FACESHEET AND COVID RESULTS FAXED TO [place], [place] PER DR RICCI. [phone].
[2021-03-11 18:12] LABS: SARS-Cov-2 (COVID-19) PCR, MMC NEGATIVE (NEGATIVE)
--- NOTE | 2021-03-11 19:18 | NUR ---
Resumed care at 7am. Patient was sleeping at the begining of the shift and woke up at breakfast. Took her morning meds. Was restless and complained of cough and pain at lower extremity. Cough med Tessalon and tylenol was given but stated she didn't like to take tylenol. Tramadol was order and 50 mg po was given , it was effective. Had 1000 mg Iv solu-medurol , no adverse effects noted. Ambulate to bathroom independently . Dialysis was done this monring. vital signs are stable. Continue to monitor.
== END 2021-03-11 22:37 | disposition short-term general hospital (02) | DRG 871 ==
LOC: ER 10:26 → MEDS 16:21
PROVIDERS: Emergency Medicine; Family Medicine; Internal Medicine; Physician Assistant; Student in an Organized Health Care Education/Training Program; ADMIT Hospitalist
PROC: 30233N1 Transfusion of Nonautologous Red Blood Cells into Peripheral Vein, Percutaneous Approach (ICD-10-PCS; 2021-03-03)
PROC: 0JH63XZ Insertion of Tunneled Vascular Access Device into Chest Subcutaneous Tissue and Fascia, Percutaneous Approach (ICD-10-PCS; principal; 2021-03-10)
PROC: 02HV33Z Insertion of Infusion Device into Superior Vena Cava, Percutaneous Approach (ICD-10-PCS; 2021-03-10)
PROC: B548ZZA Ultrasonography of Superior Vena Cava, Guidance (ICD-10-PCS; 2021-03-10)
DX: A41.9 Sepsis, unspecified organism (principal); N17.0 Acute kidney failure with tubular necrosis; J18.9 Pneumonia, unspecified organism; N39.0 Urinary tract infection, site not specified; E87.1 Hypo-osmolality and hyponatremia; J45.909 Unspecified asthma, uncomplicated; Z20.822 Contact with and (suspected) exposure to COVID-19; E03.9 Hypothyroidism, unspecified; G89.18 Other acute postprocedural pain; G43.909 Migraine, unspecified, not intractable, without status migrainosus; E83.39 Other disorders of phosphorus metabolism; E87.6 Hypokalemia; R65.20 Severe sepsis without septic shock; E66.9 Obesity, unspecified; F15.10 Other stimulant abuse, uncomplicated; R19.7 Diarrhea, unspecified; E55.9 Vitamin D deficiency, unspecified; E83.42 Hypomagnesemia; R82.71 Bacteriuria; I77.6 Arteritis, unspecified; N18.9 Chronic kidney disease, unspecified; Z86.14 Personal history of Methicillin resistant Staphylococcus aureus infection; Z90.49 Acquired absence of other specified parts of digestive tract; Z87.891 Personal history of nicotine dependence; Z88.0 Allergy status to penicillin; Z88.8 Allergy status to other drugs, medicaments and biological substances; Z79.899 Other long term (current) drug therapy
CPT/HCPCS: 36415; 36430; 36558; 50200; 71045; 71250; 73700; 74176; 76770; 76937; 77001; 77012; 80048; 80053; 80069; 81001; 81050; 82247; 82248; 82270; 82272; 82306; 82550; 82570; 82607; 82728; 82746; 83010; 83516; 83520; 83540; 83550; 83605; 83615; 83735; 84100; 84132; 84145; 84156; 84165; 84166; 84300; 84443; 84540; 84550; 85007; 85014; 85018; 85025; 85027; 85045; 85610; 85651; 85730; 86038; 86160; 86256; 86317; 86704; 86708; 86803; 86850; 86900; 86901; 86920; 86923; 87040; 87081; 87086; 87340; 87389; 87493; 87804; 88329; 93306; 93970; 96365; 96366; 96367; 97110; 97162; 97166; 97530; 97535; 99152; 99285-25; A9270; C1750; C1751; C1769; C1894; C9113; J0456; J0696; J0881; J1644; J1650; J1940; J2250; J2405; J2916; J2930; J3010; J3480; J7030; J7040; J7050; J7120; J8530; P9016; U0004

== ENCOUNTER 2021-03-22 01:30 | Inpatient (IN) | payer OTHER ==
[~2021-03-22] VITALS: Ht 177.8 cm; Wt 110.7 kg
[~2021-03-22 01:30] MED LIST changes: +FURO20 PO
--- NOTE | 2021-03-22 05:17 | NUR ---
SHIFT SUMMARY DIRECT ADMIT PT ARRIVED AT 0140. MADE AWARE. PT AAOX4. CHEERFUL AND COOPERATIVE. ON 7L NC. NO DISTRESS NOTED. ABLE TO MAKE NEEDS KNOWN. CALL LIGHT WITHIN REACH. VS STABLE. BED IN LOWEST POSITION.
[2021-03-22 08:06] LABS: BASOPHILS ABSOLUTE AUTO 0.04 K/mm3 (0.00-0.23); BASOPHILS PERCENT AUTO 0 % (0-2); EOSINOPHILS ABSOLUTE AUTO 0.41 K/mm3 (0.00-0.68); EOSINOPHILS PERCENT AUTO 3 % (0-6); Hematocrit 25.6 % (33.0-51.0); IMMATURE GRAN ABSOLUTE AUTO 0.09 K/mm3 (0.00-0.10); IMMATURE GRAN PERCENT AUTO 1 % (0-1); LYMPHOCYTES ABSOLUTE AUTO 0.99 K/mm3 (0.84-5.20); LYMPHOCYTES PERCENT AUTO 7 % (21-46); MONOCYTES ABSOLUTE AUTO 0.68 K/mm3 (0.16-1.47); MONOCYTES PERCENT AUTO 5 % (4-13); Mean Corpuscular HGB 28.3 pg (26.0-34.0); Mean Corpuscular HGB Conc 31.3 g/dL (31.5-36.5); Mean Corpuscular Volume 91 fL (80-100); NEUTROPHILS ABSOLUTE AUTO 12.42 K/mm3 (1.96-9.15); NEUTROPHILS PERCENT AUTO 85 % (41-73); Platelet Count 94 K/mm3 (150-400); RDW Coefficient Variation 19.3 % (11.7-14.2); RDW Standard Deviation 63.2 fL (35.1-46.3); Red Blood Cell Count 2.83 M/mm3 (3.80-5.20); White Blood Cell Count 14.63 K/mm3 (4.00-11.30)
[2021-03-22 08:18] LABS: Albumin, Blood 3.5 g/dL (3.4-5.0); Anion Gap 7 mmol/L (6-16); Blood Urea Nitrogen 26 mg/dL (8-24); Bun/Creatinine Ratio 7.9 (12.0-20.0); CO2, Blood 24 mmol/L (21-32); Chloride, Blood 107 mmol/L (98-108); Creatinine, Blood 3.29 mg/dL (0.40-1.00); Glomerular Filtration Rate 15 (60-); Glucose, Blood 104 mg/dL (70-99); Phosphorus, Blood 5.1 mg/dL (2.5-4.9); Potassium, Blood 4.3 mmol/L (3.5-5.5); Sodium, Blood 138 mmol/L (136-145)
--- NOTE | 2021-03-22 16:40 | NUR ---
SHIFT SUMMARY PT IS AOX4. PT MEDICATED FOR PAIN X2 THIS SHIFT. PT DENIES VOMITING, SOB. PT MEDICATED X1 FOR NAUSEA. PT EVALUATED BY NEPHROLOGY THIS SHIFT. PT APPETITE IS GOOD. PT DID NOT HAVE VISITORS THIS SHIFT. PT IS INDEPENDENT IN ROOM. PT DID NOT HAVE DIALYSIS TODAY. PT IS IN BED, CALL LIGHT IN REACH, LOW POSITION.
[2021-03-23 04:40] LABS: BASOPHILS ABSOLUTE AUTO 0.06 K/mm3 (0.00-0.23); BASOPHILS PERCENT AUTO 0 % (0-2); EOSINOPHILS ABSOLUTE AUTO 0.46 K/mm3 (0.00-0.68); EOSINOPHILS PERCENT AUTO 3 % (0-6); Hematocrit 29.3 % (33.0-51.0); IMMATURE GRAN ABSOLUTE AUTO 0.06 K/mm3 (0.00-0.10); IMMATURE GRAN PERCENT AUTO 0 % (0-1); LYMPHOCYTES ABSOLUTE AUTO 1.66 K/mm3 (0.84-5.20); LYMPHOCYTES PERCENT AUTO 12 % (21-46); MONOCYTES ABSOLUTE AUTO 0.89 K/mm3 (0.16-1.47); MONOCYTES PERCENT AUTO 6 % (4-13); Mean Corpuscular HGB 28.7 pg (26.0-34.0); Mean Corpuscular HGB Conc 30.7 g/dL (31.5-36.5); Mean Corpuscular Volume 93 fL (80-100); Mean Platelet Volume 9.4 fL (9.1-12.4); NEUTROPHILS PERCENT AUTO 78 % (41-73); Platelet Count 111 K/mm3 (150-400); RDW Coefficient Variation 19.4 % (11.7-14.2); RDW Standard Deviation 64.4 fL (35.1-46.3); Red Blood Cell Count 3.14 M/mm3 (3.80-5.20); White Blood Cell Count 13.83 K/mm3 (4.00-11.30)
[2021-03-23 05:01] LABS: Bun/Creatinine Ratio 7.3 (12.0-20.0); Creatinine, Blood 3.96 mg/dL (0.40-1.00); Potassium, Blood 4.4 mmol/L (3.5-5.5)
--- NOTE | 2021-03-23 06:06 | NUR ---
END OF SHIFT SUMMARY Pt c/o gen pain especially in extremities and headache, medicated per eMAR. Pt requests to have tramadol and Tylenol together. Denies SOB. On 4LNC. Pt independent in room. Pt adjusting height of the bed stating she "cant sleep when bed is in lowest position" Educated on importance of low bed position. A&Ox4. Able to voice needs. Call light within reach.
--- NOTE | 2021-03-23 17:22 | NUR ---
a+o, call light in reach, medicated as prescribed, dialysis done with no reported issues, saline locked, 4L via nc, still very inappropiate verbally, legs start hurting just before pain medication is available, will continue monitoring and treating until share report with noc nurse
[2021-03-24 04:56] LABS: BASOPHILS ABSOLUTE AUTO 0.05 K/mm3 (0.00-0.23); BASOPHILS PERCENT AUTO 0 % (0-2); EOSINOPHILS ABSOLUTE AUTO 0.05 K/mm3 (0.00-0.68); EOSINOPHILS PERCENT AUTO 0 % (0-6); Hematocrit 23.6 % (33.0-51.0); Hemoglobin 7.4 g/dL (11.5-16.0); IMMATURE GRAN ABSOLUTE AUTO 0.07 K/mm3 (0.00-0.10); IMMATURE GRAN PERCENT AUTO 1 % (0-1); LYMPHOCYTES ABSOLUTE AUTO 1.79 K/mm3 (0.84-5.20); LYMPHOCYTES PERCENT AUTO 12 % (21-46); MONOCYTES ABSOLUTE AUTO 0.63 K/mm3 (0.16-1.47); MONOCYTES PERCENT AUTO 4 % (4-13); Mean Corpuscular HGB 28.7 pg (26.0-34.0); Mean Corpuscular HGB Conc 31.4 g/dL (31.5-36.5); Mean Corpuscular Volume 92 fL (80-100); Mean Platelet Volume 10.2 fL (9.1-12.4); NEUTROPHILS ABSOLUTE AUTO 12.31 K/mm3 (1.96-9.15); NEUTROPHILS PERCENT AUTO 83 % (41-73); Platelet Count 106 K/mm3 (150-400); RDW Coefficient Variation 19.3 % (11.7-14.2); RDW Standard Deviation 63.8 fL (35.1-46.3); Red Blood Cell Count 2.58 M/mm3 (3.80-5.20)
[2021-03-24 05:21] LABS: Albumin, Blood 3.4 g/dL (3.4-5.0); Albumin/Globulin Ratio 1.3 (0.8-1.8); Bilirubin, Total 0.4 mg/dL (0.1-1.0); Bun/Creatinine Ratio 6.9 (12.0-20.0); Calcium, Blood 8.9 mg/dL (8.5-10.1); Creatinine, Blood 3.49 mg/dL (0.40-1.00); Globulin, Blood 2.6 g/dL (2.2-4.0); Potassium, Blood 3.8 mmol/L (3.5-5.5)
--- NOTE | 2021-03-24 05:31 | NUR ---
END OF SHIFT SUMMARY: No acute events overnight. Pt still c/o gen pain and especially BLE. Medicated per eMAR. Pt pleasant but anxious causing BP to be elevated. Medicated for pain and anxiety. Able to voice needs. Call light within reach.
--- NOTE | 2021-03-24 17:15 | NUR ---
SHIFT SUMMARY PATIENT IS ALERT AND ORIENTED. PATIENT HAS HAS A COUPLE OF PAIN REQUESTS WHICH WERE RESOLVED WITH MEDICATION PER EMAR. DIALYSIS WAS NOT DONE TODAY. 2LITERS NASAL CANNULA. NO ACUTE EVENTS THIS SHIFT. VITAL SIGNS REVIEWED. WILL CONTINUE TO MONITOR UNTIL SHIFT CHANGE.
--- NOTE | 2021-03-25 04:27 | NUR ---
END OF SHIFT SUMMARY: No acute events overnight. Pt More withdrawn tonight. Saying that she "just didnt have a good day." She is able to voice needs. Teary about her pain. Medicated per EMAR. Able to voice needs. Independent in room. Call light within reac.
[2021-03-25 08:53] LABS: Albumin, Blood 3.6 g/dL (3.4-5.0); Anion Gap 8 mmol/L (6-16); Blood Urea Nitrogen 32 mg/dL (8-24); Bun/Creatinine Ratio 8.1 (12.0-20.0); CO2, Blood 27 mmol/L (21-32); Chloride, Blood 101 mmol/L (98-108); Creatinine, Blood 3.95 mg/dL (0.40-1.00); Glomerular Filtration Rate 12 (60-); Glucose, Blood 75 mg/dL (70-99); Phosphorus, Blood 4.7 mg/dL (2.5-4.9); Potassium, Blood 3.4 mmol/L (3.5-5.5); Sodium, Blood 136 mmol/L (136-145)
--- NOTE | 2021-03-25 17:01 | NUR ---
Reviewed chart and discussed case with Primary RN Elizabeth prior to Pt visit. Pt resting in bed upon arrival. Pt is A&OX4. Engaged in therapeutic listening as Pt reports not having any family. Pt reports no parents and states "I them". Asked Pt to elaborate. Pt reports due to inability to get along with family she has not had anything to do with them. Pt reports her friend Christiano is her ex . Engaged therapeutic discussion regarding considering completing an advanced directive. Pt is receptive and this RN educated on each scenario and life sustaining interventions. Discussed the importance of appointing a healthcare charter representative. Initialy Pt reports not having anyone and did not want to appoint her friend. Pt continued to consider her options and appears that she will reconsider her friend. She states he will be visiting tomorrow and will discuss further with hime. Ended visit to allow Pt to rest. Palliative Care will remain available.
--- NOTE | 2021-03-25 17:16 | NUR ---
SUMMARY PT SITTING UP IN BED WATCHING TV, PT HAS BEEN PLEASANT AND COOPERATIVE T/O THE DAY, VERY VOCAL AT TIMES, INDEPENDENT IN THE ROOM, PT HAD DIALYSIS TODAY, PAT WELL, PT HAD A SHOWER TODAY WELL, PT MED PER EMAR FOR PAIN, CARE MANAGEMENT WORKING ON A DISCHARGE PLAN, VSS, WILL CONTINUE TO MONITOR
[2021-03-26 05:03] LABS: BASOPHILS ABSOLUTE AUTO 0.05 K/mm3 (0.00-0.23); BASOPHILS PERCENT AUTO 1 % (0-2); EOSINOPHILS ABSOLUTE AUTO 0.06 K/mm3 (0.00-0.68); EOSINOPHILS PERCENT AUTO 1 % (0-6); Hematocrit 23.4 % (33.0-51.0); Hemoglobin 7.4 g/dL (11.5-16.0); IMMATURE GRAN ABSOLUTE AUTO 0.07 K/mm3 (0.00-0.10); IMMATURE GRAN PERCENT AUTO 1 % (0-1); LYMPHOCYTES ABSOLUTE AUTO 2.16 K/mm3 (0.84-5.20); LYMPHOCYTES PERCENT AUTO 20 % (21-46); MONOCYTES ABSOLUTE AUTO 0.82 K/mm3 (0.16-1.47); MONOCYTES PERCENT AUTO 8 % (4-13); Mean Corpuscular HGB 29.1 pg (26.0-34.0); Mean Corpuscular HGB Conc 31.6 g/dL (31.5-36.5); Mean Corpuscular Volume 92 fL (80-100); Mean Platelet Volume 9.7 fL (9.1-12.4); NEUTROPHILS ABSOLUTE AUTO 7.58 K/mm3 (1.96-9.15); NEUTROPHILS PERCENT AUTO 71 % (41-73); Platelet Count 130 K/mm3 (150-400); RDW Coefficient Variation 20.4 % (11.7-14.2); Red Blood Cell Count 2.54 M/mm3 (3.80-5.20); White Blood Cell Count 10.74 K/mm3 (4.00-11.30)
--- NOTE | 2021-03-26 06:25 | NUR ---
SHIFT SUMMARY PT IS A 51 Y/O FEMALE, ADMITTED FOR ACUTE RENAL FAILURE. SHE IS A&O X 4, ANXIOUS AT TIMES, INDEPENDENT IN THE ROOM. NO C/O PAIN, NAUSEA OR SOB, THOUGH PT IS REPORTING CONSTIPATION. VITAL SIGNS STABLE. NO ACUTE CHANGES IN PT CONDITION NOTED DURING THE NIGHT. WILL CONTINUE TO MONITOR AND TREAT PER EMAR UNTIL HAND OFF TO DAY SHIFT RN.
--- NOTE | 2021-03-26 09:02 | NUR ---
PT'S BED IN A HIGH POSITION, LOWERED BED, PT STATES SHE RAISED THE BED HERSELF AND SHE PREFERS IT IN A HIGHER POSITION, EDUCATED PT ABOUT THE RISKS OF FALLS AND FALL PREVENTION
[2021-03-26 10:11] LABS: ANTIGLOMERULAR BM AB 37 units (0-20)
--- NOTE | 2021-03-26 17:23 | NUR ---
SUMMARY PT SITTING UP IN BED WATCHING TV, PT HAS BEEN PLEASANT AND COOPERATIVE WITH CARE T/O THE DAY, INDEPENDENT IN THE ROOM, PT MED PER EMAR FOR PAIN, NO DIALYSIS TODAY, VSS, WILL CONT TO MONITOR
--- NOTE | 2021-03-27 05:21 | NUR ---
SHIFT SUMMARY PT IS A 51 Y/O FEMALE, ADMITTED FOR RENAL FAILURE. SHE IS A&O X 3, WITH EPISODES OF ANXIETY AND AGITATION. INDEPENDENT IN THE ROOM. PT IS CURRENTLY ON DIALYSIS. PT C/O CHRONIC PAIN IN HER BLE, AND WAS MEDICATED WITH PRN TRAMADOL. NO C/O ACUTE NAUSEA OR SOB. VITAL SIGNS STABLE. NO ACUTE CHANGES IN PT CONDITION NOTED DURING THE NIGHT. WILL CONTINUE TO MONITOR AND TREAT PER EMAR UNTIL HAND OFF TO DAY SHIFT RN.
[2021-03-27 09:41] LABS: BASOPHILS ABSOLUTE AUTO 0.06 K/mm3 (0.00-0.23); BASOPHILS PERCENT AUTO 1 % (0-2); EOSINOPHILS ABSOLUTE AUTO 0.11 K/mm3 (0.00-0.68); EOSINOPHILS PERCENT AUTO 1 % (0-6); Hematocrit 24.7 % (33.0-51.0); Hemoglobin 7.8 g/dL (11.5-16.0); IMMATURE GRAN ABSOLUTE AUTO 0.06 K/mm3 (0.00-0.10); IMMATURE GRAN PERCENT AUTO 1 % (0-1); LYMPHOCYTES ABSOLUTE AUTO 2.16 K/mm3 (0.84-5.20); LYMPHOCYTES PERCENT AUTO 18 % (21-46); MONOCYTES ABSOLUTE AUTO 0.83 K/mm3 (0.16-1.47); MONOCYTES PERCENT AUTO 7 % (4-13); Mean Corpuscular HGB 29.5 pg (26.0-34.0); Mean Corpuscular HGB Conc 31.6 g/dL (31.5-36.5); Mean Corpuscular Volume 94 fL (80-100); Mean Platelet Volume 9.3 fL (9.1-12.4); NEUTROPHILS ABSOLUTE AUTO 9.14 K/mm3 (1.96-9.15); NEUTROPHILS PERCENT AUTO 74 % (41-73); Platelet Count 198 K/mm3 (150-400); RDW Standard Deviation 70.4 fL (35.1-46.3); Red Blood Cell Count 2.64 M/mm3 (3.80-5.20); White Blood Cell Count 12.36 K/mm3 (4.00-11.30)
[2021-03-27 09:53] LABS: Albumin, Blood 3.5 g/dL (3.4-5.0); Anion Gap 7 mmol/L (6-16); Blood Urea Nitrogen 39 mg/dL (8-24); Bun/Creatinine Ratio 9.9 (12.0-20.0); CO2, Blood 26 mmol/L (21-32); Chloride, Blood 105 mmol/L (98-108); Creatinine, Blood 3.94 mg/dL (0.40-1.00); Glomerular Filtration Rate 12 (60-); Glucose, Blood 101 mg/dL (70-99); Phosphorus, Blood 3.7 mg/dL (2.5-4.9); Potassium, Blood 3.6 mmol/L (3.5-5.5); Sodium, Blood 138 mmol/L (136-145)
[2021-03-27 11:10] LABS: ANA DIRECT Negative (Negative); ANTIMYELOPEROXIDASE (MPO) ABS <9.0 U/mL (0.0-9.0); ANTIPROTEINASE 3 (PR-3) ABS 79.5 U/mL (0.0-3.5); ATYPICAL PANCA <1:20 titer (Neg:<1:20); PERINUCLEAR (P-ANCA) <1:20 titer (Neg:<1:20)
--- NOTE | 2021-03-27 17:10 | NUR ---
SUMMARY PT SITTING UP IN BED WATCHING TV, PT HAS BEEN PLEASANT AND COOPERATIVE WITH CARE T/O THE DAY, PT HAS BEEN INDEPENDENT IN THE ROOM, PT MED PER EMAR FOR C/O PAIN, PT HAD DIALYSIS TODAY, PAT WELL, CARE MANAGEMENT WORKING ON A DISCHARGE PLAN, VSS, WILL CONTINUE TO MONITOR
--- NOTE | 2021-03-28 05:54 | NUR ---
SHIFT SUMMARY PT IS A&OX4. PT IS ON 2L O2 VIA NC.PT IS INDEPENDENT IN ROOM. PT C/O PAIN IN BOTH LEGS, PRN PAIN MED ADMINISTERED WITH GOOD EFFECTS. SAFETY MEASURES IN PLACE. WILL CONTINUE TO MONITOR.
--- NOTE | 2021-03-28 16:16 | NUR ---
SHIFT SUMMARY PATIENT MEDICATED X1 FOR PAIN. PATIENT MEDICATED X1 FOR NAUSEA. PATIENT DENIES SOB. PATIENT IS ON 2L N/C AND MAINTAINING SATS IN THE MID 90S. PATIENT HAS DIALYSIS TODAY. PATIENT EATING AND DRINKING WELL. PATIENT IS IND TO THE BATHROOM. PATIENT HAD A VISITOR IN THE AFTERNOON. PATIENT IS PLEASANT AND COOPERATIVE WITH CARE.
[2021-03-29 04:53] LABS: Hemoglobin 8.8 g/dL (11.5-16.0)
[2021-03-29 05:18] LABS: Albumin, Blood 3.4 g/dL (3.4-5.0); Anion Gap 7 mmol/L (6-16); Blood Urea Nitrogen 30 mg/dL (8-24); Bun/Creatinine Ratio 10.2 (12.0-20.0); CO2, Blood 30 mmol/L (21-32); Calcium, Blood 9.2 mg/dL (8.5-10.1); Chloride, Blood 103 mmol/L (98-108); Creatinine, Blood 2.93 mg/dL (0.40-1.00); Glomerular Filtration Rate 17 (60-); Glucose, Blood 87 mg/dL (70-99); Magnesium, Blood 2.4 mg/dL (1.6-2.4); Phosphorus, Blood 3.5 mg/dL (2.5-4.9); Potassium, Blood 3.7 mmol/L (3.5-5.5); Sodium, Blood 140 mmol/L (136-145)
--- NOTE | 2021-03-29 05:26 | NUR ---
SHIFT SUMMARY PT A&OX4. INDEPENDENT IN ROOM. PT C/O PAIN IN BOTH LEGS. PRN PAIN MED GIVEN PER EMAR WITH GOOD EFFECTS.ADLS PROVIDE. SAFETY MEASURES IN PLACE. WILL CONTINUE TO MONITOR.
--- NOTE | 2021-03-29 16:22 | NUR ---
SHIFT SUMMARY PATIENT MEDICATED FOR PAIN X1. PATIENT DENIES NAUSEA, AND SHORTNESS OF BREATH. PATIENT IS INDEPENDENT TO THE BATHROOM. PATIENT IS EATING AND DRINKING WELL. PATIENT IS PLEASANT AND COOPERATIVE WITH CARE. NO DIALYSIS TODAY.
[2021-03-30 04:43] LABS: Hematocrit 26.5 % (33.0-51.0); Hemoglobin 8.3 g/dL (11.5-16.0)
[2021-03-30 05:07] LABS: Albumin, Blood 3.1 g/dL (3.4-5.0); Anion Gap 8 mmol/L (6-16); Blood Urea Nitrogen 40 mg/dL (8-24); Bun/Creatinine Ratio 11.6 (12.0-20.0); CO2, Blood 27 mmol/L (21-32); Calcium, Blood 8.9 mg/dL (8.5-10.1); Chloride, Blood 105 mmol/L (98-108); Creatinine, Blood 3.45 mg/dL (0.40-1.00); Glomerular Filtration Rate 14 (60-); Glucose, Blood 88 mg/dL (70-99); Magnesium, Blood 2.5 mg/dL (1.6-2.4); Potassium, Blood 3.6 mmol/L (3.5-5.5); Sodium, Blood 140 mmol/L (136-145)
--- NOTE | 2021-03-30 05:52 | NUR ---
PATIENT ALERT AND ORIENTED X4. PATIENT IS PLEASANT AND COOPERTIVE. PATIENT DENIES PAIN, N/V, SOB, CHEST PAIN OR PALPITATION. PATIENT SLEPT WELL ALL NIGHT, NO ACUTE EVENT NOTED OR REPORTED. WILL CONTINUE TO MONITOR.
--- NOTE | 2021-03-30 18:07 | NUR ---
Shift Summary, The patient is A/OX4 to person, place, time and event. The patient's mood is labile and she is impolsive. The patient is on 2lpm NC and denies any chest pain or SOB. The patient is independent in the room. She denies chest pain she has +1 pitting edema BLE. Her blood pressure has been high this afternoon and the provider has been contacted ordered HYDRALIZINE. The patient has been urinating throughout the day and she stated that urine has been yellow/clear. The patient is currently resting in bed, her call light is within reach.
[2021-03-31 05:13] LABS: Hematocrit 27.4 % (33.0-51.0); Hemoglobin 8.6 g/dL (11.5-16.0)
[2021-03-31 05:30] LABS: Albumin, Blood 3.1 g/dL (3.4-5.0); Anion Gap 8 mmol/L (6-16); Blood Urea Nitrogen 44 mg/dL (8-24); Bun/Creatinine Ratio 11.4 (12.0-20.0); CO2, Blood 27 mmol/L (21-32); Calcium, Blood 8.8 mg/dL (8.5-10.1); Chloride, Blood 104 mmol/L (98-108); Creatinine, Blood 3.86 mg/dL (0.40-1.00); Glomerular Filtration Rate 12 (60-); Glucose, Blood 89 mg/dL (70-99); Magnesium, Blood 2.3 mg/dL (1.6-2.4); Phosphorus, Blood 4.1 mg/dL (2.5-4.9); Potassium, Blood 3.6 mmol/L (3.5-5.5); Sodium, Blood 139 mmol/L (136-145)
--- NOTE | 2021-03-31 06:32 | NUR ---
PATIENT IS ALERT AND ORIENTED X4. PATIENT IS PLEASANT AND COOPERATIVE. PATIENT HAS BEEN RUNNING ELEVATED BLOOD PRESSURE, PATIENT WAS MEDICATED WITH HYDRALAZINE, NIFEDIPINE, AND LOSARTAN ORDERED. PATIENT LAST HAD DIALYSIS ON 03/27/21 AND MAY BE CAUSING ELEVATED BLOOD PRESSURE. PATIENT WILL BE HAVING DIALYSIS THIS MORNING. PATIENT WAS MEDICATED WITH TRAMADOL FOR GENERALIZED PAIN WITH GOOD EFFECT. PATIENT SLEPT ALL NIGHT NO ACUTE EVENT REPORTED. WILL CONTINUE TO MONITOR.
--- NOTE | 2021-03-31 16:47 | NUR ---
PT IS A/OX4, PLEASANT AND COOPERATIVE, THE PT IS UP IND IN HER ROOM. THE PT APPEARS TO BE BREATHING EASILY ON RA AT THIS TIME. THE PT WAS MEDICATED FOR CARBAJAL PAIN THIS AM AND LIDOCAINE GELL APPLIED TO THE BACK OF THE PT'S NECK FOR PAIN,. THE PT SLEPT OFF AND ON THIS AFTERNOON. PT DID NOT RECIEVE DIALYSIS TODAY. CALL LIGHT IN REACH, WILL CONTINUE TO MONITOR AND ASSESS FOR CHANGES
[2021-04-01 04:41] LABS: Hematocrit 27.5 % (33.0-51.0); Hemoglobin 9.1 g/dL (11.5-16.0)
[2021-04-01 05:17] LABS: Albumin, Blood 3.1 g/dL (3.4-5.0); Anion Gap 10 mmol/L (6-16); Blood Urea Nitrogen 49 mg/dL (8-24); Bun/Creatinine Ratio 11.7 (12.0-20.0); CO2, Blood 23 mmol/L (21-32); Calcium, Blood 8.8 mg/dL (8.5-10.1); Chloride, Blood 103 mmol/L (98-108); Ferritin, Serum 473 ng/mL (8-252); Glomerular Filtration Rate 11 (60-); Glucose, Blood 84 mg/dL (70-99); Iron Serum 60 ug/dL (50-170); Magnesium, Blood 2.4 mg/dL (1.6-2.4); Percent Saturation 20.6 % (15.0-50.0); Phosphorus, Blood 4.5 mg/dL (2.5-4.9); Sodium, Blood 136 mmol/L (136-145); Total Iron Binding Capacity 291 ug/dL (250-450)
--- NOTE | 2021-04-01 06:40 | NUR ---
PATIENT IS ALERT AND ORIENTED X4. PATIENT REPORTS PAIN TO HER NECK, LEGS AND HEAD. PATIENT WAS MEDICATED WITH ULTRAM 50 MG WITH GOOD EFFECT. PATIENT BP PRESSURE CONTNUE TO BE ELEVATED. PATIENT WAS MEDICATED WITH HER SCHEDULED BLOOD PRESSURE PILLS. PATIENT MAY BE HAVING HER DIALYSIS THIS MORNING. PATIENT SLEPT WELL, NO COMPLAIN VOICED.
--- NOTE | 2021-04-01 14:39 | NUR ---
Discussed limiting salt intake and reviewed common sources of dietary sodium. Discussed protein recommendations for a person on vs. not on dialysis. Discussed that intake of foods high in K or Phos may have to be adjusted if blood work reveals abnormalities in future.
--- NOTE | 2021-04-01 18:42 | NUR ---
SUMMARY- PT A/O X4, INDEPENDANT IN ROOM. TOLERATING FOOD AND FLUIDS. NO DIALYSIS TODAY OR FOR THE LAST [address] NOGUERA HERE THID PM AND STATED PT WOULD LIKELY HAVE DIALYSIS TOMORROW. BP REMAINS ELEVATED, DR COLLAZO STARTED ADDITIONAL PATCH. MEDICATED FOR CARBAJAL AND LE PAIN ULTRAM THIS AM WITH RELEIF. PT SHOWERED TODAY, IS IN GOOD SPIRITS.
--- NOTE | 2021-04-02 05:27 | NUR ---
PATIENT A/O X4. PATIENT'S BLOOD PRESSURE CONTINUE TO BE ELEVATED. PATIENT WAS MEDICATED WITH HER SCHEDULED BLOOD PRESURE MEDICATIONS, PT'S BP 153/101 THIS AM. PATIENT MAY BE HAVING DIALYSIS THIS MORNING. PATIENT WAS MEDICATED WITH ULTRAM AND TYLENOL FOR NECK AND LEG PAIN WITH GOOD EFFECT. PATIENT SLEPT ALL NIGHT NO COMPLAIN VOICED.
[2021-04-02 07:51] LABS: Hematocrit 26.2 % (33.0-51.0); Hemoglobin 8.4 g/dL (11.5-16.0)
[2021-04-02 08:06] LABS: Albumin, Blood 3.2 g/dL (3.4-5.0); Anion Gap 7 mmol/L (6-16); Blood Urea Nitrogen 58 mg/dL (8-24); Bun/Creatinine Ratio 13.2 (12.0-20.0); CO2, Blood 26 mmol/L (21-32); Calcium, Blood 8.8 mg/dL (8.5-10.1); Chloride, Blood 104 mmol/L (98-108); Creatinine, Blood 4.39 mg/dL (0.40-1.00); Glomerular Filtration Rate 11 (60-); Glucose, Blood 82 mg/dL (70-99); Potassium, Blood 3.9 mmol/L (3.5-5.5); Sodium, Blood 137 mmol/L (136-145)
[2021-04-02 10:30] LABS: Hematocrit 28.5 % (33.0-51.0)
--- NOTE | 2021-04-02 17:53 | NUR ---
SUMMARY- PT A/O X4, INDEPENDANT IN ROOM. VOIDS IN HAT. HAD DIALYSIS TODAY. VSS, BLOOD PRESURE BETTER CONTROLLED. PAIN IN NECK AND LEGS CONTROLLED WITH AM ULTRAM AND TYLENOL. TOLERATING FOOD AND FLUIDS. HAD BM YESTERDAY. PT IN GOOD SPIRITS, ALWAYS SILLY AND JOVIAL.
--- NOTE | 2021-04-03 06:42 | NUR ---
PATIENT IS ASLEEP LYING IN BED RR EVEN AND UNLABORED NO ACUTE CHANGES OVERNIGHT. CALL LIGT WITHIN REACH
[2021-04-03 08:07] LABS: Hematocrit 27.3 % (33.0-51.0); Hemoglobin 8.7 g/dL (11.5-16.0)
[2021-04-03 08:17] LABS: Albumin, Blood 3.2 g/dL (3.4-5.0); Anion Gap 6 mmol/L (6-16); Blood Urea Nitrogen 34 mg/dL (8-24); Bun/Creatinine Ratio 10.2 (12.0-20.0); CO2, Blood 30 mmol/L (21-32); Calcium, Blood 8.9 mg/dL (8.5-10.1); Chloride, Blood 100 mmol/L (98-108); Creatinine, Blood 3.34 mg/dL (0.40-1.00); Glomerular Filtration Rate 15 (60-); Glucose, Blood 80 mg/dL (70-99); Phosphorus, Blood 4.3 mg/dL (2.5-4.9); Potassium, Blood 3.8 mmol/L (3.5-5.5); Sodium, Blood 136 mmol/L (136-145)
--- NOTE | 2021-04-03 16:01 | NUR ---
SHIFT SUMMARY NO ACUTE CHANGES TO PRESENT THIS SHIFT. PT IS PLEASANT AND CO-OP. VERY CHEERFUL. ADMITTED FOR RENAL FAILURE. NO DIALYSIS TODAY. PT VOIDING WELL, KEEPING TRACK OF HER OWN OUTPUT. UP INDEPENDENTLY IN RM. REQUESTED TO WALK IN HALLS. TERESITA GIVEN. PT TO CALL FOR O2 TANK WHEN READY. VISITOR HERE TO SEE PT AND BROUGHT IN PIZZA. DENIED FUTHER NEEDS AT THIS TIME. CALL LT IN REACH.
[2021-04-04 04:56] LABS: Hematocrit 28.7 % (33.0-51.0); Hemoglobin 9.1 g/dL (11.5-16.0)
[2021-04-04 05:32] LABS: Anion Gap 6 mmol/L (6-16); Blood Urea Nitrogen 49 mg/dL (8-24); Bun/Creatinine Ratio 13.6 (12.0-20.0); CO2, Blood 27 mmol/L (21-32); Calcium, Blood 8.6 mg/dL (8.5-10.1); Chloride, Blood 103 mmol/L (98-108); Creatinine, Blood 3.61 mg/dL (0.40-1.00); Glomerular Filtration Rate 13 (60-); Glucose, Blood 87 mg/dL (70-99); Phosphorus, Blood 4.2 mg/dL (2.5-4.9); Potassium, Blood 4.2 mmol/L (3.5-5.5); Sodium, Blood 136 mmol/L (136-145)
--- NOTE | 2021-04-04 18:46 | NUR ---
PT AAOX4,NO ACUTE DISTRESS DISTRESS NOTED.HAD DIALYSIS THIS MORNING AND TOLERATED WELL.PLACED RESTRICTIONS ON SOME OF HER VISITORS.NEEDS MADE AVAILABLE,CALL LIGHT WITHIN REACH, MONITORING CONTINUES.
[2021-04-05 05:03] LABS: BASOPHILS ABSOLUTE AUTO 0.02 K/mm3 (0.00-0.23); BASOPHILS PERCENT AUTO 0 % (0-2); EOSINOPHILS ABSOLUTE AUTO 0.06 K/mm3 (0.00-0.68); EOSINOPHILS PERCENT AUTO 1 % (0-6); Hematocrit 31.8 % (33.0-51.0); IMMATURE GRAN ABSOLUTE AUTO 0.16 K/mm3 (0.00-0.10); IMMATURE GRAN PERCENT AUTO 1 % (0-1); LYMPHOCYTES ABSOLUTE AUTO 1.93 K/mm3 (0.84-5.20); LYMPHOCYTES PERCENT AUTO 17 % (21-46); MONOCYTES ABSOLUTE AUTO 1.19 K/mm3 (0.16-1.47); MONOCYTES PERCENT AUTO 10 % (4-13); Mean Corpuscular HGB 31.2 pg (26.0-34.0); Mean Corpuscular HGB Conc 31.4 g/dL (31.5-36.5); Mean Corpuscular Volume 99 fL (80-100); Mean Platelet Volume 10.6 fL (9.1-12.4); NEUTROPHILS ABSOLUTE AUTO 8.27 K/mm3 (1.96-9.15); NEUTROPHILS PERCENT AUTO 71 % (41-73); Platelet Count 311 K/mm3 (150-400); RDW Coefficient Variation 23.3 % (11.7-14.2); RDW Standard Deviation 82.9 fL (35.1-46.3); Red Blood Cell Count 3.21 M/mm3 (3.80-5.20); White Blood Cell Count 11.63 K/mm3 (4.00-11.30)
[2021-04-05 05:29] LABS: Alanine Aminotransfer (ALT/SGP 14 U/L (12-78); Albumin, Blood 3.3 g/dL (3.4-5.0); Albumin/Globulin Ratio 1.1 (0.8-1.8); Alk Phos 82 U/L (50-136); Anion Gap 4 mmol/L (6-16); Aspartate Aminotrans (AST/SGOT 8 U/L (12-37); Bilirubin, Direct <0.1 mg/dL (0.0-0.3); Bilirubin, Indirect Unable to Calculate mg/dL (0.1-0.7); Bilirubin, Total 0.3 mg/dL (0.1-1.0); Blood Urea Nitrogen 34 mg/dL (8-24); Bun/Creatinine Ratio 12.9 (12.0-20.0); C-REACTIVE PROTEIN, EXT RANGE 0.455 mg/dL (0.000-0.300); CO2, Blood 30 mmol/L (21-32); Calcium, Blood 8.7 mg/dL (8.5-10.1); Chloride, Blood 102 mmol/L (98-108); Creatinine, Blood 2.64 mg/dL (0.40-1.00); Globulin, Blood 2.9 g/dL (2.2-4.0); Glomerular Filtration Rate 19 (60-); Glucose, Blood 82 mg/dL (70-99); Magnesium, Blood 2.2 mg/dL (1.6-2.4); Phosphorus, Blood 3.6 mg/dL (2.5-4.9); Potassium, Blood 4.3 mmol/L (3.5-5.5); Sodium, Blood 136 mmol/L (136-145); Total Protein, Blood 6.2 g/dL (6.4-8.2)
--- NOTE | 2021-04-05 06:23 | NUR ---
SHIFT SUMMARY PT IS AA&OX4.RR EVEN AND UNLABORED. C/O PAIN IN BOTH LEGS, PRN PAIN MED ADMINISTERED WITH GOOD EFFECTS, ADLS PROVIDED, SAFETY MEASURES IN PLACE. WILL CONTINUE TO MONITOR.
--- NOTE | 2021-04-05 18:26 | NUR ---
PT IN STABLE CONDITIONS, MEDICATED FOR PAIN NEEDED, TOLERATED ALL MEDS,NO ACUTE DISTRESS NOTED,CALL LIGHT WITHIN REACH,MONITORING CONTINUES
[2021-04-06 04:45] LABS: BASOPHILS ABSOLUTE AUTO 0.03 K/mm3 (0.00-0.23); BASOPHILS PERCENT AUTO 0 % (0-2); EOSINOPHILS ABSOLUTE AUTO 0.04 K/mm3 (0.00-0.68); EOSINOPHILS PERCENT AUTO 0 % (0-6); Hematocrit 31.6 % (33.0-51.0); Hemoglobin 9.9 g/dL (11.5-16.0); IMMATURE GRAN ABSOLUTE AUTO 0.19 K/mm3 (0.00-0.10); IMMATURE GRAN PERCENT AUTO 1 % (0-1); LYMPHOCYTES ABSOLUTE AUTO 1.92 K/mm3 (0.84-5.20); LYMPHOCYTES PERCENT AUTO 14 % (21-46); MONOCYTES ABSOLUTE AUTO 1.22 K/mm3 (0.16-1.47); MONOCYTES PERCENT AUTO 9 % (4-13); Mean Corpuscular HGB 31.2 pg (26.0-34.0); Mean Corpuscular HGB Conc 31.3 g/dL (31.5-36.5); Mean Corpuscular Volume 100 fL (80-100); Mean Platelet Volume 9.9 fL (9.1-12.4); NEUTROPHILS ABSOLUTE AUTO 10.49 K/mm3 (1.96-9.15); NEUTROPHILS PERCENT AUTO 76 % (41-73); Platelet Count 306 K/mm3 (150-400); RDW Standard Deviation 83.2 fL (35.1-46.3); Red Blood Cell Count 3.17 M/mm3 (3.80-5.20); White Blood Cell Count 13.89 K/mm3 (4.00-11.30)
[2021-04-06 05:02] LABS: Albumin, Blood 3.4 g/dL (3.4-5.0); Anion Gap 6 mmol/L (6-16); Blood Urea Nitrogen 50 mg/dL (8-24); Bun/Creatinine Ratio 16.2 (12.0-20.0); CO2, Blood 26 mmol/L (21-32); Calcium, Blood 8.9 mg/dL (8.5-10.1); Chloride, Blood 104 mmol/L (98-108); Creatinine, Blood 3.08 mg/dL (0.40-1.00); Glomerular Filtration Rate 16 (60-); Glucose, Blood 98 mg/dL (70-99); Magnesium, Blood 2.2 mg/dL (1.6-2.4); Phosphorus, Blood 4.4 mg/dL (2.5-4.9); Potassium, Blood 4.1 mmol/L (3.5-5.5); Sodium, Blood 136 mmol/L (136-145)
--- NOTE | 2021-04-06 06:21 | NUR ---
patient slept deeply between trips to the bathroom. She was measuring her own urine and writing it on the board. Urine output totaled 1550ml overnight. medicated once with tramadol and APAP for bilateral leg pain, and once at HS with lidocaine gel to the back of her neck in the location of the arachnoid cyst. Patient is alert and oriented, pleasant and cooperative with care
--- NOTE | 2021-04-06 20:21 | NUR ---
PT AAOX4, MEDICATED FOR PAIN NEEDED, NO ACUTE DISTRESS NOTED, V/S AT 1600s NOTED B/P 179/116 .79P, DR BUNDY NOTIFIED AND ORDERED HYDRALAZINE 10-20 MG IVP,NOTED PT DIDNOT HAVE IV ACCESS AND REFUSED IV INSERTION, NOTIFIED AGAIN AND ORDERED HYDRALAZINE 50MG TAB PO SBP >160. MEDS GIVEN ORDERED AND REPORT GIVEN TO NEXT SHIFT.
--- NOTE | 2021-04-07 04:36 | NUR ---
SHIFT SUMMARY AOX4. GETS EASILY IRRITATED c STAFF @TIMES. VERY LABILE EMOTIONS. REPORTS 8/10 PAIN IN LEGS/BACK OF HEAD, MEDICATED 1X c TYLENOL & TRAMADOL. BP ELEVATED @SHIFT CHANGE LAST NIGHT, 181/121, PRN HYDRALAZINE GIVEN & HS BP MEDS- BP DECREASED TO 136/88. REST OF VSS. NO S/SX SOB OR N/V. AWAITING DC PLAN. CALL LIGHT IN REACH. WCTM.
[2021-04-07 04:54] LABS: BASOPHILS ABSOLUTE AUTO 0.01 K/mm3 (0.00-0.23); BASOPHILS PERCENT AUTO 0 % (0-2); EOSINOPHILS ABSOLUTE AUTO 0.01 K/mm3 (0.00-0.68); EOSINOPHILS PERCENT AUTO 0 % (0-6); Hematocrit 29.6 % (33.0-51.0); Hemoglobin 9.5 g/dL (11.5-16.0); IMMATURE GRAN ABSOLUTE AUTO 0.14 K/mm3 (0.00-0.10); IMMATURE GRAN PERCENT AUTO 1 % (0-1); LYMPHOCYTES PERCENT AUTO 11 % (21-46); MONOCYTES ABSOLUTE AUTO 0.97 K/mm3 (0.16-1.47); MONOCYTES PERCENT AUTO 8 % (4-13); Mean Corpuscular HGB 32.1 pg (26.0-34.0); Mean Corpuscular HGB Conc 32.1 g/dL (31.5-36.5); Mean Corpuscular Volume 100 fL (80-100); Mean Platelet Volume 10.3 fL (9.1-12.4); NEUTROPHILS ABSOLUTE AUTO 10.48 K/mm3 (1.96-9.15); NEUTROPHILS PERCENT AUTO 80 % (41-73); Platelet Count 242 K/mm3 (150-400); RDW Coefficient Variation 22.8 % (11.7-14.2); RDW Standard Deviation 83.7 fL (35.1-46.3); Red Blood Cell Count 2.96 M/mm3 (3.80-5.20); White Blood Cell Count 13.01 K/mm3 (4.00-11.30)
--- NOTE | 2021-04-07 08:17 | NUR ---
PT RECIEVED IN BED,AAOX4,MEDICATED FOR PAIN, REVIEWED POC WITH PT.DIALYSIS TODAY,CALL LIGHT IN PLACE
[2021-04-07 09:54] LABS: Hematocrit 29.3 % (33.0-51.0); Hemoglobin 9.4 g/dL (11.5-16.0)
[2021-04-07 10:11] LABS: Albumin, Blood 2.9 g/dL (3.4-5.0); Anion Gap 6 mmol/L (6-16); Blood Urea Nitrogen 52 mg/dL (8-24); Bun/Creatinine Ratio 14.9 (12.0-20.0); CO2, Blood 28 mmol/L (21-32); Calcium, Blood 8.7 mg/dL (8.5-10.1); Chloride, Blood 103 mmol/L (98-108); Glomerular Filtration Rate 14 (60-); Glucose, Blood 127 mg/dL (70-99); Phosphorus, Blood 4.7 mg/dL (2.5-4.9); Sodium, Blood 137 mmol/L (136-145)
--- NOTE | 2021-04-07 12:51 | NUR ---
PT RETURNED FROM DIALYSIS, EATING LUNCH IN ROOM. NEEDS MET. CALL LIGHT WITHIN REACH, MONITORING CONTINUE.
--- NOTE | 2021-04-07 18:23 | NUR ---
PT AAOX4,NO ACUTE DISRESS NOTED,HAD DIALYSIS TODAY, NO NEW ORDER,PAIN MEDS GIVEN NEEDED.PT CONTINUE TO REQUEST FOR COFFEE EVERY HOUR, EDUCATED ON DIET VERBALIZED UNDERSTANDING.CALL LIGHT IN PLACED.
--- NOTE | 2021-04-08 04:57 | NUR ---
SHIFT SUMMARY NO ACUTE CHANGES THIS SHIFT. AOX4. VSS. REPORTS PAIN BACK OF HEAD & LEGS, MEDICATED 1X c TYLENOL & ULTRAM PER EMAR. DENIES N/V OR SOB. AWAITING SAFE DC PLAN. CALL LIGHT IN REACH. WCTM.
[2021-04-08 06:32] LABS: BASOPHILS ABSOLUTE AUTO 0.03 K/mm3 (0.00-0.23); BASOPHILS PERCENT AUTO 0 % (0-2); EOSINOPHILS ABSOLUTE AUTO 0.03 K/mm3 (0.00-0.68); EOSINOPHILS PERCENT AUTO 0 % (0-6); Hematocrit 31.1 % (33.0-51.0); Hemoglobin 9.7 g/dL (11.5-16.0); IMMATURE GRAN PERCENT AUTO 1 % (0-1); LYMPHOCYTES ABSOLUTE AUTO 1.65 K/mm3 (0.84-5.20); LYMPHOCYTES PERCENT AUTO 14 % (21-46); MONOCYTES PERCENT AUTO 10 % (4-13); Mean Corpuscular HGB 31.2 pg (26.0-34.0); Mean Corpuscular HGB Conc 31.2 g/dL (31.5-36.5); Mean Corpuscular Volume 100 fL (80-100); Mean Platelet Volume 10.8 fL (9.1-12.4); NEUTROPHILS ABSOLUTE AUTO 9.23 K/mm3 (1.96-9.15); NEUTROPHILS PERCENT AUTO 76 % (41-73); Platelet Count 261 K/mm3 (150-400); RDW Coefficient Variation 22.8 % (11.7-14.2); RDW Standard Deviation 82.6 fL (35.1-46.3); Red Blood Cell Count 3.11 M/mm3 (3.80-5.20); White Blood Cell Count 12.24 K/mm3 (4.00-11.30)
[2021-04-08 06:55] LABS: Albumin, Blood 2.8 g/dL (3.4-5.0); Anion Gap 4 mmol/L (6-16); Blood Urea Nitrogen 41 mg/dL (8-24); Bun/Creatinine Ratio 13.7 (12.0-20.0); CO2, Blood 31 mmol/L (21-32); Chloride, Blood 104 mmol/L (98-108); Glomerular Filtration Rate 16 (60-); Glucose, Blood 77 mg/dL (70-99); Magnesium, Blood 1.9 mg/dL (1.6-2.4); Phosphorus, Blood 3.8 mg/dL (2.5-4.9); Potassium, Blood 4.2 mmol/L (3.5-5.5); Sodium, Blood 139 mmol/L (136-145)
--- NOTE | 2021-04-08 19:17 | NUR ---
PT AAOX4,NO ACUTE DISTRESS NOTED, PAIN MANAGED WITH MEDS, HAD A LARGE BM THIS EVENING 190 AND THOUGHT THERE WAS BLOOD IN IT, BUT NO APPARENT BLOOD SEEN, FORMED TO SOFT STOOL BROWN TO YELLOWISH STOOL. TOLD PT THERE IS NO BLOOD. HAD A SHOWER AND HAIR SHAMPOOED, PODIATRY TEACHER HELPED TO DETANGLE AND COMBED HAIR . HAD A STBALE DAY. CALL LIGHT WNL.
[2021-04-09 05:03] LABS: BASOPHILS ABSOLUTE AUTO 0.02 K/mm3 (0.00-0.23); BASOPHILS PERCENT AUTO 0 % (0-2); EOSINOPHILS ABSOLUTE AUTO 0.01 K/mm3 (0.00-0.68); EOSINOPHILS PERCENT AUTO 0 % (0-6); Hematocrit 30.9 % (33.0-51.0); Hemoglobin 9.8 g/dL (11.5-16.0); IMMATURE GRAN ABSOLUTE AUTO 0.09 K/mm3 (0.00-0.10); IMMATURE GRAN PERCENT AUTO 1 % (0-1); LYMPHOCYTES ABSOLUTE AUTO 1.67 K/mm3 (0.84-5.20); LYMPHOCYTES PERCENT AUTO 13 % (21-46); MONOCYTES ABSOLUTE AUTO 0.84 K/mm3 (0.16-1.47); MONOCYTES PERCENT AUTO 7 % (4-13); Mean Corpuscular HGB 31.4 pg (26.0-34.0); Mean Corpuscular HGB Conc 31.7 g/dL (31.5-36.5); Mean Corpuscular Volume 99 fL (80-100); Mean Platelet Volume 10.7 fL (9.1-12.4); NEUTROPHILS ABSOLUTE AUTO 9.93 K/mm3 (1.96-9.15); NEUTROPHILS PERCENT AUTO 79 % (41-73); Platelet Count 235 K/mm3 (150-400); RDW Coefficient Variation 22.5 % (11.7-14.2); RDW Standard Deviation 81.8 fL (35.1-46.3); Red Blood Cell Count 3.12 M/mm3 (3.80-5.20); White Blood Cell Count 12.56 K/mm3 (4.00-11.30)
[2021-04-09 05:27] LABS: Anion Gap 5 mmol/L (6-16); Blood Urea Nitrogen 53 mg/dL (8-24); Bun/Creatinine Ratio 15.1 (12.0-20.0); CO2, Blood 29 mmol/L (21-32); Calcium, Blood 9.6 mg/dL (8.5-10.1); Chloride, Blood 102 mmol/L (98-108); Glomerular Filtration Rate 14 (60-); Glucose, Blood 85 mg/dL (70-99); Magnesium, Blood 2.1 mg/dL (1.6-2.4); Phosphorus, Blood 4.5 mg/dL (2.5-4.9); Potassium, Blood 4.5 mmol/L (3.5-5.5); Sodium, Blood 136 mmol/L (136-145)
--- NOTE | 2021-04-09 17:44 | NUR ---
SHIFT SUMMARY 51 Y FEMAL ADMITTED WITH RENAL FAILURE. PT IS A&O AND UP IND IN . PT WAS MEDICATED FOR LEG PAIN X2 TODAY. PT HAD HD TODAY AND TOLERATED WELL. D/C PENDING CHAIR TIME FOR OUTPAITENT DIALYSIS. NO OTHER CHANGES THIS SHIFT.
--- NOTE | 2021-04-10 06:35 | NUR ---
PT VSS, MEDICATED X1 FOR PAIN,COMPLAINED OF ROOM BEING TOO COLD CALLED MAINTENANCE TO HAVE TEMP ADJUSTED.NO OTHER ISSUES NOTED. SAFETY MEASURES IN PLACE CALL LIGHT IN REACH
--- NOTE | 2021-04-10 16:52 | NUR ---
SHIFT SUMMARY 51 Y FEMAL ADMITTED WITH RENAL FAILURE. PT IS A&O AND UP IND IN . PT WAS UP TO SHOWER TODAY AND IS SCHEDULED FOR HD TOMORROW. EDUCATIONAL MATERIAL PROVIDED TO PT REGARDING RENAL DIET. D/C PENDING CHAIR TIME FOR OUTPATIENT DIALYSIS. NO OTHER CHANGES THIS SHIFT.
--- NOTE | 2021-04-11 05:29 | NUR ---
PT HAS BEEN AWAKE ALL NIGHT, REMAINS ALERT AND ORIENTED X4, WAS TREATED PER EMAR FOR RESTLESS LEG PAIN. PT IS IND IN ROOM AND MAKES NEEDS KNOWN. WILL CONTINUE TO MONITOR.
[2021-04-11 06:22] LABS: BASOPHILS ABSOLUTE AUTO 0.01 K/mm3 (0.00-0.23); BASOPHILS PERCENT AUTO 0 % (0-2); EOSINOPHILS ABSOLUTE AUTO 0.03 K/mm3 (0.00-0.68); EOSINOPHILS PERCENT AUTO 0 % (0-6); Hematocrit 34.5 % (33.0-51.0); Hemoglobin 10.9 g/dL (11.5-16.0); IMMATURE GRAN ABSOLUTE AUTO 0.11 K/mm3 (0.00-0.10); IMMATURE GRAN PERCENT AUTO 1 % (0-1); LYMPHOCYTES ABSOLUTE AUTO 1.73 K/mm3 (0.84-5.20); LYMPHOCYTES PERCENT AUTO 12 % (21-46); MONOCYTES ABSOLUTE AUTO 1.02 K/mm3 (0.16-1.47); MONOCYTES PERCENT AUTO 7 % (4-13); Mean Corpuscular HGB 31.5 pg (26.0-34.0); Mean Corpuscular HGB Conc 31.6 g/dL (31.5-36.5); Mean Corpuscular Volume 100 fL (80-100); Mean Platelet Volume 10.2 fL (9.1-12.4); NEUTROPHILS ABSOLUTE AUTO 11.58 K/mm3 (1.96-9.15); NEUTROPHILS PERCENT AUTO 80 % (41-73); Platelet Count 249 K/mm3 (150-400); RDW Coefficient Variation 21.7 % (11.7-14.2); RDW Standard Deviation 79.2 fL (35.1-46.3); Red Blood Cell Count 3.46 M/mm3 (3.80-5.20); White Blood Cell Count 14.48 K/mm3 (4.00-11.30)
[2021-04-11 06:44] LABS: Albumin, Blood 3.3 g/dL (3.4-5.0); Anion Gap 6 mmol/L (6-16); Blood Urea Nitrogen 53 mg/dL (8-24); Bun/Creatinine Ratio 15.5 (12.0-20.0); CO2, Blood 27 mmol/L (21-32); Calcium, Blood 9.3 mg/dL (8.5-10.1); Chloride, Blood 102 mmol/L (98-108); Creatinine, Blood 3.43 mg/dL (0.40-1.00); Glomerular Filtration Rate 14 (60-); Glucose, Blood 78 mg/dL (70-99); Magnesium, Blood 2.2 mg/dL (1.6-2.4); Phosphorus, Blood 4.3 mg/dL (2.5-4.9); Potassium, Blood 4.7 mmol/L (3.5-5.5); Sodium, Blood 135 mmol/L (136-145)
--- NOTE | 2021-04-11 17:25 | NUR ---
NO ACUTE CHANGES PT AOX4 AND COOPERATIVE OF CARE. CALL LIGHT WITHIN REACH NO DISTRESS NOTED.
[2021-04-12 04:59] LABS: BASOPHILS ABSOLUTE AUTO 0.03 K/mm3 (0.00-0.23); BASOPHILS PERCENT AUTO 0 % (0-2); EOSINOPHILS ABSOLUTE AUTO 0.02 K/mm3 (0.00-0.68); EOSINOPHILS PERCENT AUTO 0 % (0-6); Hematocrit 34.7 % (33.0-51.0); Hemoglobin 10.9 g/dL (11.5-16.0); IMMATURE GRAN ABSOLUTE AUTO 0.09 K/mm3 (0.00-0.10); IMMATURE GRAN PERCENT AUTO 1 % (0-1); LYMPHOCYTES ABSOLUTE AUTO 1.41 K/mm3 (0.84-5.20); LYMPHOCYTES PERCENT AUTO 11 % (21-46); MONOCYTES ABSOLUTE AUTO 0.84 K/mm3 (0.16-1.47); MONOCYTES PERCENT AUTO 7 % (4-13); Mean Corpuscular HGB 31.8 pg (26.0-34.0); Mean Corpuscular HGB Conc 31.4 g/dL (31.5-36.5); Mean Corpuscular Volume 101 fL (80-100); Mean Platelet Volume 9.6 fL (9.1-12.4); NEUTROPHILS ABSOLUTE AUTO 10.59 K/mm3 (1.96-9.15); NEUTROPHILS PERCENT AUTO 82 % (41-73); Platelet Count 236 K/mm3 (150-400); RDW Coefficient Variation 21.7 % (11.7-14.2); RDW Standard Deviation 79.2 fL (35.1-46.3); Red Blood Cell Count 3.43 M/mm3 (3.80-5.20); White Blood Cell Count 12.98 K/mm3 (4.00-11.30)
--- NOTE | 2021-04-12 05:26 | NUR ---
VSS, A+OX4, PRN PAIN MEDICATION ADMINISTERED. NO NEW ISSUES NOTED. CALL LIGHT IN REACH.
[2021-04-12 06:10] LABS: Albumin, Blood 3.1 g/dL (3.4-5.0); Albumin/Globulin Ratio 0.9 (0.8-1.8); Bilirubin, Total 0.3 mg/dL (0.1-1.0); Bun/Creatinine Ratio 16.8 (12.0-20.0); Creatinine, Blood 3.69 mg/dL (0.40-1.00); Globulin, Blood 3.4 g/dL (2.2-4.0); Magnesium, Blood 2.2 mg/dL (1.6-2.4); Phosphorus, Blood 5.3 mg/dL (2.5-4.9); Potassium, Blood 4.6 mmol/L (3.5-5.5); Total Protein, Blood 6.5 g/dL (6.4-8.2)
--- NOTE | 2021-04-12 18:34 | NUR ---
SHIFT SUMMARY: NO ACUTE EVENTS. C/O BLE PAIN, MEDICATED WITH TYLENOL AND TRAMADOL WITH ADEQUATE RELIEF. HAD DIALYSIS TODAY, TOLERATED WELL. GOOD APPETITE, BUT IS A PICKY EATER. INDEPENDENT IN ROOM. ON O2 @ 2.5 L/MIN NC.
[2021-04-13 04:44] LABS: BASOPHILS ABSOLUTE AUTO 0.03 K/mm3 (0.00-0.23); BASOPHILS PERCENT AUTO 0 % (0-2); EOSINOPHILS ABSOLUTE AUTO 0.02 K/mm3 (0.00-0.68); EOSINOPHILS PERCENT AUTO 0 % (0-6); Hematocrit 31.9 % (33.0-51.0); Hemoglobin 10.1 g/dL (11.5-16.0); IMMATURE GRAN ABSOLUTE AUTO 0.09 K/mm3 (0.00-0.10); IMMATURE GRAN PERCENT AUTO 1 % (0-1); LYMPHOCYTES ABSOLUTE AUTO 1.74 K/mm3 (0.84-5.20); LYMPHOCYTES PERCENT AUTO 15 % (21-46); MONOCYTES ABSOLUTE AUTO 0.79 K/mm3 (0.16-1.47); MONOCYTES PERCENT AUTO 7 % (4-13); Mean Corpuscular HGB 31.6 pg (26.0-34.0); Mean Corpuscular HGB Conc 31.7 g/dL (31.5-36.5); Mean Corpuscular Volume 100 fL (80-100); NEUTROPHILS ABSOLUTE AUTO 8.63 K/mm3 (1.96-9.15); NEUTROPHILS PERCENT AUTO 76 % (41-73); Platelet Count 203 K/mm3 (150-400); RDW Coefficient Variation 22.2 % (11.7-14.2)
[2021-04-13 05:03] LABS: Albumin, Blood 2.8 g/dL (3.4-5.0); Anion Gap 7 mmol/L (6-16); Blood Urea Nitrogen 46 mg/dL (8-24); Bun/Creatinine Ratio 15.4 (12.0-20.0); CO2, Blood 27 mmol/L (21-32); Calcium, Blood 8.6 mg/dL (8.5-10.1); Chloride, Blood 108 mmol/L (98-108); Creatinine, Blood 2.98 mg/dL (0.40-1.00); Glomerular Filtration Rate 17 (60-); Glucose, Blood 118 mg/dL (70-99); Magnesium, Blood 2.1 mg/dL (1.6-2.4); Phosphorus, Blood 4.2 mg/dL (2.5-4.9); Potassium, Blood 4.1 mmol/L (3.5-5.5); Sodium, Blood 142 mmol/L (136-145)
--- NOTE | 2021-04-13 06:00 | NUR ---
VSS. 2.5L NC. PRN PAIN MED GIVEN FOR COMPLIANTS OF PAIN IN THE LOWER EXTREMS.NO OTHER ISSUES IDENTIFIED. PT IS A+Ox 4, ABLE TO VERBALIZE NEEDS. CALL LIGHT IN REACH
--- NOTE | 2021-04-13 17:19 | NUR ---
PT IS A/OX3, PLEASANT AND COOPERATIVE, THE PT IS UP IND IN HER ROOM. THIS AM THE PT WAS TEARFULL AND UPSET THAT SHE WAS STILL HERE IN THE HOSPTITAL. UNDERSTANDING AND ENCOURAGEMENT WAS GIVEN TO THE PT AND HER MOOD SEEMED TO BE BETTER AFTER BREAKFAST. THE PT'S BP WAS ELEVATED TODAY PRN HYDRAZOLINE WAS GIVEN. DR. NOGUERA WAS IN TO SEE THE PT AND MADE ADJUSTMENTS TO HER MEDICATIONS. THE PT WAS MEDICATED FOR PAIN THIS AM. CALL LIGHT IN REACH, THE PT APPEARS TO BE BREATHING EASILY ON RA AT THIS TIME. WILL CONTINUE TO MONITOR AND ASSEESS FOR CHANGES
[2021-04-13 19:18] LABS: Appearance, Urine Clear (Clear); Bilirubin, Urine Neg (Neg); Blood, Urine 5+ (Neg); Color, Urine Yellow (P-Yellow); Glucose Qualitative, Urine Neg (Neg); Ketones, Urine Neg (Neg); Leukocyte Esterase, Urine 1+ (Neg); Nitrite, Urine Neg (Neg); Protein, Urine 4+ (Neg); Specific Gravity, Urine 1.015 (1.003-1.022); Urobilinogen, Urine NORM (Normal)
[2021-04-13 19:51] LABS: Red Blood Cells, Urine 25-50 /hpf (0-2)
[2021-04-13 19:52] LABS: Bacteria Few /hpf; Squamous Epithelial Cells Few /hpf (Few)
--- NOTE | 2021-04-14 05:41 | NUR ---
MOBILE PRACTICE LEAD SUMMARY NO ACUTE CHANGES THIS SHIFT. PT AAOX4 AND PLEASANT. INDEPENDENT IN ROOM. MEDICATED FOR CHRONIC LEG/NECK PAIN AT BEDTIME WITH TRAMADOL AND TYLENOL. PT SLEPT WELL MOST OF THE NIGHT. HYPERTENSIVE WITH AM VITALS, GIVEN PRN HYDRALAZINE PO. SBP NOW 150'S. OTHER VSS, WILL CONTINUE TO MONITOR.
[2021-04-14 08:14] LABS: BASOPHILS ABSOLUTE AUTO 0.03 K/mm3 (0.00-0.23); BASOPHILS PERCENT AUTO 0 % (0-2); EOSINOPHILS ABSOLUTE AUTO 0.04 K/mm3 (0.00-0.68); EOSINOPHILS PERCENT AUTO 0 % (0-6); Hematocrit 30.5 % (33.0-51.0); Hemoglobin 9.8 g/dL (11.5-16.0); IMMATURE GRAN ABSOLUTE AUTO 0.06 K/mm3 (0.00-0.10); IMMATURE GRAN PERCENT AUTO 1 % (0-1); LYMPHOCYTES ABSOLUTE AUTO 1.56 K/mm3 (0.84-5.20); LYMPHOCYTES PERCENT AUTO 15 % (21-46); MONOCYTES ABSOLUTE AUTO 0.76 K/mm3 (0.16-1.47); MONOCYTES PERCENT AUTO 7 % (4-13); Mean Corpuscular HGB 32.5 pg (26.0-34.0); Mean Corpuscular HGB Conc 32.1 g/dL (31.5-36.5); Mean Corpuscular Volume 101 fL (80-100); Mean Platelet Volume 9.6 fL (9.1-12.4); NEUTROPHILS ABSOLUTE AUTO 8.06 K/mm3 (1.96-9.15); NEUTROPHILS PERCENT AUTO 77 % (41-73); Platelet Count 215 K/mm3 (150-400); Red Blood Cell Count 3.02 M/mm3 (3.80-5.20); White Blood Cell Count 10.51 K/mm3 (4.00-11.30)
[2021-04-14 08:33] LABS: Albumin, Blood 2.7 g/dL (3.4-5.0); Albumin/Globulin Ratio 0.9 (0.8-1.8); Bilirubin, Total 0.3 mg/dL (0.1-1.0); Bun/Creatinine Ratio 17.1 (12.0-20.0); Calcium, Blood 8.9 mg/dL (8.5-10.1); Creatinine, Blood 3.45 mg/dL (0.40-1.00); Potassium, Blood 4.1 mmol/L (3.5-5.5); Total Protein, Blood 5.7 g/dL (6.4-8.2)
--- NOTE | 2021-04-14 12:07 | NUR ---
Called to dialysis to meet with patient. She is very distrught at being in hospital and her unknown future. She needs to apply for disabilty and figure out her lving situation.Pt sates difficulty walking and may need vascular intervention. She is living in a trailer with an ex boyfriend and is struggleing Wit ADL's shopping and food. She denies heaches or vision issues no nausea. She has struggled with adictions. No nausea. Staff reports tolerating dialysis. Discussed with her Getting more benefits and will get her resourse information from care mangers. Sugested she consider foster retirement. She will also need trasport to dialysis. She states she does not have income. Brought pt somne art therapy and a quilt she enjoyed them very much. Will follow up and have chaplians see her!
--- NOTE | 2021-04-14 16:49 | NUR ---
DAY SHIFT SUMMARY ALERT AND ORIENTED X3,INDEPENDENT IN ROOM, DIALYSIS TX TODAY WITHOUT REPORTED ISSUES, PT UPSET WITH HOW LONG HER HOSPITAL STAY HAS BEEN AND THE UNSURE TIME FRAME OF HOW LONG SHE WILL BE HERE. HYPERTENSIVE MOST OF THE DAY WITH SYSTOLIC RANGING FROM 130-175 WITH BP. BP MEDS GIVEN PRESCRIBED.
--- NOTE | 2021-04-15 03:27 | NUR ---
SHIFT SUMMARY A/OX3, PLEASANT AND COOPERATIVE WITH CARE. C/O HEADACHE AND LEG PAIN, MEDICATED PER EMAR. IND IN ROOM. 2L VIA NC AT BASELINE, DENIES SOB. VSS, NO ACUTE CHANGES AT THIS TIME. BED IN LOWEST POSITION WITH CALL LIGHT IN REACH. WILL CONTINUE TO MONITOR AND REPORT TO ONCOMING RN.
[2021-04-15 08:23] LABS: Bun/Creatinine Ratio 11.7 (12.0-20.0); Calcium, Blood 8.7 mg/dL (8.5-10.1); Creatinine, Blood 3.09 mg/dL (0.40-1.00); Potassium, Blood 3.9 mmol/L (3.5-5.5)
--- NOTE | 2021-04-15 18:09 | NUR ---
DAY SHIFT SUMMARY ALERT AND ORIENTED X3, INDEPENDENT IN ROOM, UPSET OVER HOSPITAL STAY WITH UNCERTAIN DISCHARGE D/T NEEDING A DIALYSIS CHAIR. PT CONCERNED THAT SHE WILL CATCH COVID WHILE BEING IN THE HOSPITAL AND STATES SHE WANTS TO GO HOME "TO " EXPLAINED TO PT WHY SHE IS NOT BEING DISCHARGED AT THIS TIME AND SITUATION WITH DIALYSIS CHAIR TIME AND WHY DIALYSIS IS NEEDED. NO C/O OF NAUSEA TODAY AND NO COMPLAINT OF PAIN. CALL LIGHT IN REACH. PT ABLE TO GET SELF IN SHOWER TODAY SUCCESSFULLY.
--- NOTE | 2021-04-16 06:18 | NUR ---
SUMMARY PT HAD INCREASED SWELLING IN LEGS AND ABD SHIFT PROGRESSED. PT DENIES INCREASED SOB. PT REPORTS SOME DISCOMFORT IN LEGS FROM SWELLING. PT CURRENTLY SLEEPING IN NO DISTRESS. CALL LIGHT IN REACH.
[2021-04-16 10:10] LABS: Hematocrit 32.9 % (33.0-51.0); Hemoglobin 10.5 g/dL (11.5-16.0)
[2021-04-16 11:03] LABS: Albumin, Blood 2.9 g/dL (3.4-5.0); Anion Gap 6 mmol/L (6-16); Blood Urea Nitrogen 48 mg/dL (8-24); Bun/Creatinine Ratio 12.8 (12.0-20.0); CO2, Blood 28 mmol/L (21-32); Calcium, Blood 8.6 mg/dL (8.5-10.1); Chloride, Blood 104 mmol/L (98-108); Creatinine, Blood 3.76 mg/dL (0.40-1.00); Glomerular Filtration Rate 13 (60-); Glucose, Blood 108 mg/dL (70-99); Phosphorus, Blood 4.6 mg/dL (2.5-4.9); Potassium, Blood 4.2 mmol/L (3.5-5.5); Sodium, Blood 138 mmol/L (136-145)
--- NOTE | 2021-04-16 17:44 | NUR ---
PATIENT IS ALERT AND ORIENTED AND COOPERATIVE WITH CARE. PATIENT WAS DIALIZED THIS MORNING. C/O PAIN AND MEDICATED PER EMAR. SHE IS INDEPENDENT IN HER ROOM. WILL CONTINUE TO MONITOR
--- NOTE | 2021-04-17 04:08 | NUR ---
SHIFT SUMMARY CARRI SLEPT MOST OF THE NIGHT. NO ACUTE CHANGES, VSS. PT ADMITTED FOR RENAL FAILURE, STARTED ON DIALYSIS, AWAITING OUTPT BED AT [facility]. HD 3X/WEEK. HX OF METH USE, ASTHMA, HTN. PT IS INDEPENDENT. ROOM AIR. ORDER FOR NO IV ACCESS. HEMO CATH PLACED IN RIGHT UPPER CHEST.
--- NOTE | 2021-04-17 18:46 | NUR ---
PT ALERT ORIENTED X 4.PT DENIES N/V,SOB BUT C/O PAIN AND TINGLING IN BLE LEGS.PT INDEP IN THE ROOM.PT HAS NO ACUTE EVENTS T/O SHIFT,ASSESSMENT REMAINS UNCHANGED.PT IN CHAIR WATCHING TV,CALL LIGHT AND BELONGINGS IN REACH WILL CONTINUE TO MONITOR.
--- NOTE | 2021-04-18 04:21 | NUR ---
51 year old Female alert & pleasant. Up indep in room. Has good sense of humor. She has RT chest wall perm cath. PT awaiting placement in dialysis bed.
[2021-04-18 04:54] LABS: BASOPHILS ABSOLUTE AUTO 0.02 K/mm3 (0.00-0.23); BASOPHILS PERCENT AUTO 0 % (0-2); EOSINOPHILS ABSOLUTE AUTO 0.06 K/mm3 (0.00-0.68); EOSINOPHILS PERCENT AUTO 1 % (0-6); Hematocrit 31.4 % (33.0-51.0); Hemoglobin 10.2 g/dL (11.5-16.0); IMMATURE GRAN ABSOLUTE AUTO 0.05 K/mm3 (0.00-0.10); IMMATURE GRAN PERCENT AUTO 1 % (0-1); LYMPHOCYTES ABSOLUTE AUTO 1.51 K/mm3 (0.84-5.20); LYMPHOCYTES PERCENT AUTO 15 % (21-46); MONOCYTES ABSOLUTE AUTO 0.68 K/mm3 (0.16-1.47); MONOCYTES PERCENT AUTO 7 % (4-13); Mean Corpuscular HGB 32.8 pg (26.0-34.0); Mean Corpuscular HGB Conc 32.5 g/dL (31.5-36.5); Mean Corpuscular Volume 101 fL (80-100); Mean Platelet Volume 9.8 fL (9.1-12.4); NEUTROPHILS ABSOLUTE AUTO 7.77 K/mm3 (1.96-9.15); NEUTROPHILS PERCENT AUTO 77 % (41-73); Platelet Count 227 K/mm3 (150-400); RDW Coefficient Variation 21.4 % (11.7-14.2); RDW Standard Deviation 79.7 fL (35.1-46.3); Red Blood Cell Count 3.11 M/mm3 (3.80-5.20); White Blood Cell Count 10.09 K/mm3 (4.00-11.30)
[2021-04-18 05:13] LABS: Bun/Creatinine Ratio 13.2 (12.0-20.0); Calcium, Blood 8.8 mg/dL (8.5-10.1); Creatinine, Blood 3.41 mg/dL (0.40-1.00); Magnesium, Blood 2.1 mg/dL (1.6-2.4); Phosphorus, Blood 5.2 mg/dL (2.5-4.9); Potassium, Blood 4.5 mmol/L (3.5-5.5)
--- NOTE | 2021-04-18 18:19 | NUR ---
PT HAS VERY A PLEASANT DAY.PT HAS DIALYSIS TODAY.PT HAS NO ACUTE CHANGES T/O SHIFT.PT INDEP.TO THE ROOM.PT IN CHAIR,CALL LIGHT IN REACH, WILL CONTINUE TO MONITOR.
--- NOTE | 2021-04-19 04:59 | NUR ---
SHIFT SUMMARY NO ACUTE CHANGES TO REPORT THIS SHIFT, PT HAS RESTED MOST OF THE NIGHT. MEDICATED X1 FOR PAIN WITH EFFECT. PT HAS BEEN COOPERATIVE WITH CARE. STILL AWAITING DIALYSIS CHAIR AT THIS TIME. BED IN LOWEST POSITION, CALL LIGHT WITHIN REACH.
--- NOTE | 2021-04-19 18:10 | NUR ---
PT ASSESSMENT REMAINS UNCHANGED, NO ACUTES EVENTS T/O SHIFT,PT INDEP. IN THE ROOM.PT AAOX4 BUT CAN BE VERY ANXIOUS AT TIMES,PLEASANT.PT IN CHAIR WATCHING TV,CALL LIGHT IN REACH WILL CONTINUE TO MONITOR.
--- NOTE | 2021-04-20 04:09 | NUR ---
SHIFT SUMMARY NO ACUTE CHANGES TO REPORT THIS SHIFT. PT HAS RESTED T/O MOST OF THE SHIFT, MEDICATED FOR PAIN X1. SHE REMAINS INDEPENDENT IN THE ROOM AND IS ABLE TO MAKE NEEDS KNOWN. STILL AWAITINING CHAIR AT [facility] BEFORE SHE CAN BE DISCHARGED. BED IN LOWEST POSITION, CALL LIGHT WITHIN REACH.
--- NOTE | 2021-04-20 18:59 | NUR ---
PT ASSESSMENT REMAINS UNCHANGED T/O SHIFT,PT AAOX4,PT VERY ANXIOUS AT TIME.PT IN CHAIR WATCHING TV,CALL LIGHT IN REACH WILL CONTINUE TO MONITOR.
--- NOTE | 2021-04-21 05:16 | NUR ---
SHIFT SUMMARY PATIENT ALERT AND ORIENTED. HAD NO COMPLAINTS OF PAIN OR SHORTNESS OF BREATH. NO ACUTE ISSUES NOTED OVERNIGHT. CALL LIGHT WITHIN REACH. REPORT GIVEN TO ONCOMING RN.
[2021-04-21 10:10] LABS: ANTIGLOMERULAR BM AB 25 units (0-20)
[2021-04-21 10:16] LABS: BASOPHILS ABSOLUTE AUTO 0.03 K/mm3 (0.00-0.23); BASOPHILS PERCENT AUTO 0 % (0-2); EOSINOPHILS ABSOLUTE AUTO 0.09 K/mm3 (0.00-0.68); EOSINOPHILS PERCENT AUTO 1 % (0-6); Hemoglobin 11.3 g/dL (11.5-16.0); IMMATURE GRAN ABSOLUTE AUTO 0.09 K/mm3 (0.00-0.10); IMMATURE GRAN PERCENT AUTO 1 % (0-1); LYMPHOCYTES PERCENT AUTO 12 % (21-46); MONOCYTES ABSOLUTE AUTO 0.86 K/mm3 (0.16-1.47); MONOCYTES PERCENT AUTO 7 % (4-13); Mean Corpuscular HGB 32.8 pg (26.0-34.0); Mean Corpuscular HGB Conc 32.3 g/dL (31.5-36.5); Mean Corpuscular Volume 101 fL (80-100); Mean Platelet Volume 9.8 fL (9.1-12.4); NEUTROPHILS ABSOLUTE AUTO 9.54 K/mm3 (1.96-9.15); NEUTROPHILS PERCENT AUTO 80 % (41-73); Platelet Count 282 K/mm3 (150-400); RDW Coefficient Variation 20.5 % (11.7-14.2); RDW Standard Deviation 75.9 fL (35.1-46.3); Red Blood Cell Count 3.45 M/mm3 (3.80-5.20); White Blood Cell Count 12.01 K/mm3 (4.00-11.30)
[2021-04-21 10:39] LABS: Anion Gap 6 mmol/L (6-16); Blood Urea Nitrogen 67 mg/dL (8-24); Bun/Creatinine Ratio 18.2 (12.0-20.0); CO2, Blood 27 mmol/L (21-32); Calcium, Blood 8.8 mg/dL (8.5-10.1); Chloride, Blood 105 mmol/L (98-108); Creatinine, Blood 3.68 mg/dL (0.40-1.00); Glomerular Filtration Rate 13 (60-); Glucose, Blood 104 mg/dL (70-99); Potassium, Blood 4.2 mmol/L (3.5-5.5); Sodium, Blood 138 mmol/L (136-145)
[2021-04-21 12:10] LABS: ANA DIRECT Negative (Negative); ANTIMYELOPEROXIDASE (MPO) ABS <9.0 U/mL (0.0-9.0); ATYPICAL PANCA <1:20 titer (Neg:<1:20); PERINUCLEAR (P-ANCA) <1:20 titer (Neg:<1:20)
--- NOTE | 2021-04-21 18:59 | NUR ---
PT DIALYSED TODAY,PT AAOX4,PT ON ROOM AIR SATS IN 90S,PT HAS NO ACUTE CHANGES T/O SHIFT.PT INDEP IN THE ROOM,PT IN CHAIR,CALL LIGHT IN REACH WILL CONTINUE TO MONITOR.
--- NOTE | 2021-04-22 03:40 | NUR ---
LITERACY COACH SUMMARY HAS BEEN AWAKE AT INTERVALS THROUGHOUT NOCT SINCE HS. LAUGHING THAT SHE WAS A "NIGH OWL" AND USUALLY WAS AWAKE AT NIGHT. REQUESTED AND RECEIVED PAIN MEDS FOR LEG PAIN X 1, MED WAS EFFECTIVE AND HAS BEEN EITHER SLEEPING OR WATCHING TV SINCE. CALL LIGHT IN REACH. NO NOTED S/S ACUTE DSTRESS THIS SHIFT OF THIS WRITING.
--- NOTE | 2021-04-23 05:10 | NUR ---
SHIFT SUMMARY PT IS A 51 Y/O FEMALE, ORIGINALLY ADMITTED FOR RENAL FAILURE. SHE IS A&O X 4, WITH FLIGHT OF THOUGHTS, INDEPENDENT IN THE ROOM. SHE WAS MEDICATED ONCE FOR CHRONIC PAIN WITH PRN TRAMADOL AND TYLENOL. NO C/O NAUSEA OR SOB. VITAL SIGNS STABLE. DIALYSIS PT. NO OTHER ACUTE CHANGES IN PT CONDITION NOTED. WILL CONTINUE TO MONITOR AND TREAT PER EMAR UNTIL HAND OFF TO DAY SHIFT RN.
[2021-04-23 09:52] LABS: BASOPHILS ABSOLUTE AUTO 0.04 K/mm3 (0.00-0.23); BASOPHILS PERCENT AUTO 0 % (0-2); EOSINOPHILS ABSOLUTE AUTO 0.11 K/mm3 (0.00-0.68); EOSINOPHILS PERCENT AUTO 1 % (0-6); Hematocrit 35.6 % (33.0-51.0); Hemoglobin 11.4 g/dL (11.5-16.0); IMMATURE GRAN ABSOLUTE AUTO 0.05 K/mm3 (0.00-0.10); IMMATURE GRAN PERCENT AUTO 1 % (0-1); LYMPHOCYTES ABSOLUTE AUTO 1.73 K/mm3 (0.84-5.20); LYMPHOCYTES PERCENT AUTO 17 % (21-46); MONOCYTES ABSOLUTE AUTO 0.86 K/mm3 (0.16-1.47); MONOCYTES PERCENT AUTO 8 % (4-13); Mean Corpuscular HGB 32.7 pg (26.0-34.0); Mean Corpuscular Volume 102 fL (80-100); Mean Platelet Volume 10.1 fL (9.1-12.4); NEUTROPHILS ABSOLUTE AUTO 7.62 K/mm3 (1.96-9.15); NEUTROPHILS PERCENT AUTO 73 % (41-73); Platelet Count 274 K/mm3 (150-400); RDW Coefficient Variation 19.9 % (11.7-14.2); RDW Standard Deviation 74.5 fL (35.1-46.3); Red Blood Cell Count 3.49 M/mm3 (3.80-5.20); White Blood Cell Count 10.41 K/mm3 (4.00-11.30)
[2021-04-23 10:04] LABS: Albumin, Blood 2.9 g/dL (3.4-5.0); Bilirubin, Total 0.2 mg/dL (0.1-1.0); Bun/Creatinine Ratio 17.6 (12.0-20.0); Calcium, Blood 8.8 mg/dL (8.5-10.1); Creatinine, Blood 3.46 mg/dL (0.40-1.00); Potassium, Blood 4.5 mmol/L (3.5-5.5); Total Protein, Blood 5.9 g/dL (6.4-8.2)
--- NOTE | 2021-04-23 18:20 | NUR ---
PT DIALYZED TODAY,PT IS VERY ANXIOUS,PT HAS NO ACUTE EVNETS T/O THIS SIHFT,PT IN BED,CALL LIGHT IN REACH WILL CONTINUE TO MONIOTR.
--- NOTE | 2021-04-24 04:30 | NUR ---
SHIFT SUMMARY PT IS A 51 Y/O FEMALE, ADMITTED FOR RENALE FAILURE AND CURRENTLY AWAITING OUTPATIENT DIALYSIS PLACEMENT. SHE IS A&O X 4, VERY TALKATIVE WITH FLIGHT OF IDEAS, INDEPENDENT IN THE ROOM. VITAL SIGNS STABLE. SHE WAS MEDICATED FOR CHRONIC PAIN PER EMAR, NO C/O NAUSEA OR SOB. VITAL SIGNS STABLE. NO ACUTE CHANGES IN PT CONDITION NOTED DURING THE NIGHT. WILL CONTINUE TO MONITOR AND TREAT PER EMAR UNTIL HAND OFF TO DAY SHIFT RN.
--- NOTE | 2021-04-24 18:03 | NUR ---
PT HAS NO ACUTE EVENTS T/O SHIFT,VERY PLEASANT,ASSESSMENT REMAINS UNCHANGED,PT INDEP.CALL LIGHT IN REACH WILL CONTINUE TO MONITOR.
--- NOTE | 2021-04-25 03:35 | NUR ---
SHIFT SUMMARY PATIENT HAD NO ACUTE CHANGES OBSERVED. AXOX 4 AND INDEPENDENT IN THE ROOM. NO IV ACCESS. PERMA CATH INTACT. REPORTED LEG PAIN X ONE AND ULTRAM AND TYLENOL GIVEN PER EMAR. VSS/AFEBRILE. DENIES CHEST PAIN, SOB, AND N/V. CALL LIGHT IN REACH. BED IN LOWEST POSITION. WILL CONTINUE TO MONITOR UNTIL DAY SHIFT NURSE ASSUMES CARE.
[2021-04-25 04:48] LABS: Hematocrit 37.5 % (33.0-51.0); Hemoglobin 11.8 g/dL (11.5-16.0); Mean Corpuscular HGB 32.3 pg (26.0-34.0); Mean Corpuscular HGB Conc 31.5 g/dL (31.5-36.5); Mean Corpuscular Volume 103 fL (80-100); Mean Platelet Volume 9.2 fL (9.1-12.4); Platelet Count 237 K/mm3 (150-400); RDW Coefficient Variation 19.3 % (11.7-14.2); RDW Standard Deviation 73.1 fL (35.1-46.3); Red Blood Cell Count 3.65 M/mm3 (3.80-5.20); White Blood Cell Count 11.01 K/mm3 (4.00-11.30)
[2021-04-25 05:14] LABS: Albumin, Blood 2.9 g/dL (3.4-5.0); Anion Gap 10 mmol/L (6-16); Blood Urea Nitrogen 63 mg/dL (8-24); Bun/Creatinine Ratio 18.7 (12.0-20.0); CO2, Blood 23 mmol/L (21-32); Calcium, Blood 8.9 mg/dL (8.5-10.1); Chloride, Blood 103 mmol/L (98-108); Creatinine, Blood 3.37 mg/dL (0.40-1.00); Glomerular Filtration Rate 14 (60-); Glucose, Blood 111 mg/dL (70-99); Phosphorus, Blood 5.3 mg/dL (2.5-4.9); Potassium, Blood 4.9 mmol/L (3.5-5.5); Sodium, Blood 136 mmol/L (136-145)
--- NOTE | 2021-04-25 17:49 | NUR ---
PT A/O X4, INDEPENDENT IN ROOM. TO DIALYSIS VIA BED TODAY, TOLERATED WELL. NO ACUTE CHANGES NOTED THIS SHIFT, WILL CONTINUE TO MONITOR AND REPORT TO ONCOMING RN.
--- NOTE | 2021-04-26 03:29 | NUR ---
SHIFT SUMMARY PATIENT HAD NO ACUTE CHANGES. AXOX 4 AND INDEPENDENT IN THE ROOM. NO IV ACCESS. REPORTED LEG PAIN X ONE AND ULTRAM AND TYLENOL GIVEN PER EMAR. DENIES CHEST PAIN, SOB, AND N/V. VSS/AFEBRILE. COOPERATIVE WITH CARE. CALL LIGHT IN REACH. BED IN LOWEST POSITION. WILL CONTINUE TO MONITOR UNTIL DAY SHIFT NURSE ASSUMES CARE.
--- NOTE | 2021-04-26 17:27 | NUR ---
NO DIALYSIS TODAY, PT IS SAYING THAT SHE IS TO D/C HOME THIS COMING WEEK. NO ACUTE CHANGES NOTED THIS SHIFT, WILL CONTINUE TO MONITOR AND REPORT TO ONCOMING RN
[2021-04-27 00:07] LABS: HBSAG SCREEN Negative (Negative)
--- NOTE | 2021-04-27 03:58 | NUR ---
SHIFT SUMMARY PATIENT HAD NO ACUTE CHANGES OBSERVED. AXOX 4 AND INDEPENDENT IN THE ROOM. REPORTED DID NOT HAVE DIALYSIS. NO IV ACCESS. HYPERTENSIVE AT SHIFT CHANGE WITH SCHEDULE HTN MEDS TO BE GIVEN. DENIES PAIN, SOB, AND N/V. AFEBRILE. REPORTS D/C TO HOME AND OUTPATIENT DIALYSIS. COOPERATIVE WITH CARE. CALL LIGHT IN REACH. BED IN LOWEST POSITION. WILL CONTINUE TO MONITOR UNTIL DAY SHIFT NURSE ASSUMES CARE.
[2021-04-27 10:11] LABS: ANTIGLOMERULAR BM AB 18 units (0-20)
--- NOTE | 2021-04-27 15:42 | NUR ---
Received referral from nurse healthcare recruiter (Kiersten Otero) on 04/24/2021. Patient was admitted to [facility] on 03/22/2021 due to renal failure. Patient is to discharge Tuesday- 04/29/2021 with orders for home health and [facility]. Met with patient to further discuss the above. Patient declines home health services at this time stating "I don't need home health services. I am doing pretty good- I don't need oxygen, I am able to get myself to the bathroom, etc". Informed patient that if they changed their mind they could always request services through their primary care provider. Provided patient with my business card and home health pamphlet. Communicated the above to nurse healthcare recruiter. No further interventions required. Cecy Becker Referral Liaison
--- NOTE | 2021-04-27 16:14 | NUR ---
SHIFT SUMMARY PATIENT IS ALERT AND ORIENTED, PLEASANT AND COOPERATIVE WITH CARE. VITAL SIGNS STABLE, NO DISTRESS NOTED AT THIS TIME. PATIENT IS WAITING ON A SPOT AT [facility] FOR DIALYSIS. NOTHING FURTHER TO REPORT. THIS NURSE WILL CONTINUE TO CARE FOR THE PATIENT UNTIL SHIFT REPORT IS MADE TO THE ONCOMING NURSE.
--- NOTE | 2021-04-28 04:14 | NUR ---
SHIFT SUMMARY A/OX4, PLEASANT AND COOPERATIVE WITH CARE. C/O PAIN TO NECK AND LEGS, MEDICATED PER EMAR. PERMACATH TO RCW. NO ACUTE CHANGES AT THIS TIME. BED IN LOWEST POSITION WITH CALL LIGHT IN REACH. WILL CONTINUE TO MONITOR AND REPORT TO ONCOMING RN.
[2021-04-28 09:50] LABS: Hematocrit 35.1 % (33.0-51.0); Hemoglobin 11.2 g/dL (11.5-16.0)
[2021-04-28 10:11] LABS: Albumin, Blood 2.8 g/dL (3.4-5.0); Anion Gap 12 mmol/L (6-16); Blood Urea Nitrogen 70 mg/dL (8-24); Bun/Creatinine Ratio 18.2 (12.0-20.0); CO2, Blood 24 mmol/L (21-32); Calcium, Blood 8.5 mg/dL (8.5-10.1); Chloride, Blood 104 mmol/L (98-108); Creatinine, Blood 3.84 mg/dL (0.40-1.00); Glomerular Filtration Rate 12 (60-); Glucose, Blood 103 mg/dL (70-99); Phosphorus, Blood 6.6 mg/dL (2.5-4.9); Potassium, Blood 4.9 mmol/L (3.5-5.5); Sodium, Blood 140 mmol/L (136-145)
--- NOTE | 2021-04-28 14:53 | NUR ---
PATIENT HAS HAD AN UNEVENTFUL DAY. SHE WENT FOR DIALYSIS TODAY AND SEEMED TO TOLERATE IT WITHOUT COMPLICATION. BP ELEVATED; ANTIHYPERTENSIVE MEDS ADMINISTERED THIS AFTERNOON AFTER DIALYSIS. PATIENT IN CHEERFUL MOOD. SHE IS HOPEFUL FOR DISCHARGE HOME TOMORROW. PATIENT IS IN ROOM RESTING IN BED AT THIS TIME. DR NOGUERA AT BEDSIDE AND CALLLIGHT WITHIN REACH.
[2021-04-29 12:10] LABS: ATYPICAL PANCA <1:20 titer (Neg:<1:20); CYTOPLASMIC (C-ANCA) 1:20 titer (Neg:<1:20); PERINUCLEAR (P-ANCA) <1:20 titer (Neg:<1:20)
--- NOTE | 2021-04-30 04:33 | NUR ---
SHIFT SUMMARY PT HAD UNEVENTFUL NIGHT. CHRONIC PAIN TO BLE'S AND NECK. MEDICATED PER EMAR. PT AWAKE ON AND OFF THROUGHOUT THE NIGHT. NO ACUTE CHANGES THIS SHIFT. PT CONTINUES TO AWAIT OUTPATIENT CHAIR FOR DIALYSIS.
[2021-04-30 04:39] LABS: Hematocrit 39.2 % (33.0-51.0); Hemoglobin 12.4 g/dL (11.5-16.0); Mean Corpuscular HGB 32.5 pg (26.0-34.0); Mean Corpuscular HGB Conc 31.6 g/dL (31.5-36.5); Mean Corpuscular Volume 103 fL (80-100); Mean Platelet Volume 9.6 fL (9.1-12.4); Platelet Count 245 K/mm3 (150-400); RDW Coefficient Variation 18.1 % (11.7-14.2); RDW Standard Deviation 68.3 fL (35.1-46.3); Red Blood Cell Count 3.82 M/mm3 (3.80-5.20); White Blood Cell Count 13.21 K/mm3 (4.00-11.30)
[2021-04-30 05:03] LABS: Anion Gap 7 mmol/L (6-16); Blood Urea Nitrogen 73 mg/dL (8-24); Bun/Creatinine Ratio 19.6 (12.0-20.0); CO2, Blood 27 mmol/L (21-32); Chloride, Blood 104 mmol/L (98-108); Creatinine, Blood 3.73 mg/dL (0.40-1.00); Glomerular Filtration Rate 13 (60-); Glucose, Blood 84 mg/dL (70-99); Phosphorus, Blood 5.3 mg/dL (2.5-4.9); Potassium, Blood 5.6 mmol/L (3.5-5.5); Sodium, Blood 138 mmol/L (136-145)
--- NOTE | 2021-04-30 17:24 | NUR ---
NO ACUTE CHANGES AT THIS TIME. PT AOX4 AND COOPERATIVE OF CARE. PT INDEPENDENT IN ROOM AND CAN ALL APPROPRIATELY. PT WAS OUT FOR DIALYSIS IN THE AM. CALL LIGHT WITHIN REACH WILL CONTINUE TO MONITOR.
--- NOTE | 2021-05-01 05:38 | NUR ---
PT ALERT AND ORIENTED X4, WAS AWAKE, BUT MADE NO COMPLAINTS THROUGH NIGHT. TREATED 1X FOR HTN. NO OTHER CHANGES TO NOTE. STAFF WILL CONT TO MONITOR.
[2021-05-02 04:45] LABS: Hematocrit 36.9 % (33.0-51.0); Hemoglobin 11.8 g/dL (11.5-16.0); Mean Corpuscular HGB 32.6 pg (26.0-34.0); Mean Corpuscular Volume 102 fL (80-100); Mean Platelet Volume 9.5 fL (9.1-12.4); Platelet Count 197 K/mm3 (150-400); RDW Coefficient Variation 17.5 % (11.7-14.2); RDW Standard Deviation 66.6 fL (35.1-46.3); Red Blood Cell Count 3.62 M/mm3 (3.80-5.20); White Blood Cell Count 11.06 K/mm3 (4.00-11.30)
[2021-05-02 05:44] LABS: Bun/Creatinine Ratio 19.2 (12.0-20.0); Calcium, Blood 9.1 mg/dL (8.5-10.1); Creatinine, Blood 4.01 mg/dL (0.40-1.00); Potassium, Blood 5.4 mmol/L (3.5-5.5)
--- NOTE | 2021-05-02 06:30 | NUR ---
SHIFT SUMMARY PT IS A 51 Y/O FEMALE, ORIGINALLY ADMITTED FOR RENAL FAILURE AND CURRENTLY AWAITING OUTPATIENT DIALYSIS PLACEMENT. SHE IS A&O X 3, INDEPENDENT IN THE ROOM. VITAL SIGNS STABLE. PT WAS MEDICATED AT HS FOR CHRONIC BLE PAIN. NO C/O NAUSEA OR SOB. NO OTHER ACUTE CHANGES IN PT CONDITION NOTED DURING THE NIGHT. WILL CONTINUE TO MONITOR AND TREAT PER EMAR UNTIL HAND OFF TO DAY SHIFT RN.
--- NOTE | 2021-05-02 16:45 | NUR ---
SHIFT SUMMARY PT AXO, PLEASANT AND COOPERATIVE WITH CARE THOUGH INAPPROPRIATE THROUGHOUT THE SHIFT. PRESSURING NURSE TO "DRAW" ON HER WITH A PERMANENT MARKER. THIS NURSE REFUSED. VSS. THIS PATIENT HAD DIALYSIS THIS SHIFT. MEDICATED FOR PAIN PER EMAR X1 THIS SHIFT. NO OTHER CHANGES THIS SHIFT. BED IN LOW POSITION, CALL LIGHT WITHIN REACH.
--- NOTE | 2021-05-03 05:49 | NUR ---
SHIFT SUMMARY PT IS A 51 Y/O FEMALE, ADMITTED FOR RENAL FAILURE AND CURRENTLY AWAITING OUTPATIENT DIALYSIS PLACEMENT. SHE IS A&O X 3, WITH OCCASIONAL INAPPROPRIATE COMMENTS AND BEHAVIOUS, LABILE MOODS. INDEPENDENT IN THE ROOM. MEDICATED FOR CHRONIC LEG PAIN WITH PRN TRAMADOL AND TYLENOL. NO C/O NAUSEA OR SOB. VITAL SIGNS STABLE. NO ACUTE CHANGES IN PT CONDITION NOTED DURING THE NIGHT. WILL CONTINUE TO MONITOR AND TREAT PER EMAR UNTIL HAND OFF TO DAY SHIFT RN.
--- NOTE | 2021-05-03 16:57 | NUR ---
SHIFT SUMMARY PATIENT MEDICATED FOR PAIN X1. PATIENT DENIES NAUSEA AND SHORTNESS OF BREATH. PATIENT IS INDEPENDENT IN ROOM. PATIENT DID MAKE SOME INAPPROPRIATE COMMENTS TODAY. PATIENT OTHERWISE PLEASANT AND COOPERATIVE WITH CARE. NO DIALYSIS TODAY. PATIENT IS EATING AND DRINKING WELL. PATIENT EXPRESSED THAT SHE REALLY MISSES HOME.
--- NOTE | 2021-05-04 04:33 | NUR ---
SUMMARY: PT A/OX4, INDEPENDENT IN ROOM AND CALLS APPROPRIATELY TO SPECIFY NEEDS. SHE WAS PLEASANT AND COOPERATIVE W/CARE BUT OCC MADE BIZARRE AND SLIGHTLY INAPPROPRIATE COMMENTS. TRAMADOL AND TYLENOL RECIEVED PRN FOR TOLERABLE RELIEF OF BACK AND LEG PAIN. DIALYSIS CATH PRESENT TO R.CW. NO ACUTE CHANGES, VSS/AFEBRILE. PT AWAITING DIALSYIS CHAIR. WCTM AND REPORT TO DAY RN.
[2021-05-04] MEDS ORDERED: FURO40 PO (14:59)
[2021-05-04] MEDS ORDERED: Calcium Acetat667 MG PO (15:00)
[2021-05-04] MEDS ORDERED: TUMS500 MG PO (15:01)
[2021-05-04] MEDS ORDERED: CRANBERRY500 M1 PO (15:04)
[2021-05-04] MEDS ORDERED: CYCLOPHOSPHAMID50 MG PO (15:05)
[2021-05-04] MEDS ORDERED: LOSA50 PO (15:06)
[2021-05-04] MEDS ORDERED: NIFE90ER PO (15:07)
[2021-05-04] MEDS ORDERED: METO50ER PO (15:07)
[2021-05-04] MEDS ORDERED: PANT20 PO (15:08)
[2021-05-04] MEDS ORDERED: PRED20 PO ×2 (15:09→15:16)
[2021-05-04] MEDS ORDERED: BACTRIM 400-801 EACH PO (15:10)
[2021-05-04] MEDS ORDERED: Vitamin D1000 UNI1 PO (15:11)
--- NOTE | 2021-05-04 16:44 | NUR ---
DISCHARGE PATIENT DISCHARGED HOME. WENT OVER DISCHARGE INSTRUCTIONS, MEDICATIONS AND UP COMING FOLLOW UP APPOINTMENTS. ROOM CHECKED AND ALL PATIENT BELONGINGS PACKED UP AND TAKEN WITH PATIENT. PATIENT TAKEN OUT TO PERSONAL VEHICLE VIA WHEEL CHAIR.
[2021-05-05 07:10] LABS: HBSAG SCREEN Negative (Negative)
== END 2021-05-04 16:10 | disposition home or self-care (01) | DRG 682 ==
LOC: MEDS 01:30 → ENPENDDIS 05-04 14:33 → MEDS 05-04 16:10
PROVIDERS: Family Medicine; Internal Medicine; Internal Medicine Nephrology; ADMIT Internal Medicine
PROC: 02H633Z Insertion of Infusion Device into Right Atrium, Percutaneous Approach (ICD-10-PCS; principal; 2021-03-22)
PROC: 5A1D70Z Performance of Urinary Filtration, Intermittent, Less than 6 Hours Per Day (ICD-10-PCS; 2021-03-22)
DX: N17.9 Acute kidney failure, unspecified (principal); J96.01 Acute respiratory failure with hypoxia; J18.9 Pneumonia, unspecified organism; I12.0 Hypertensive chronic kidney disease with stage 5 chronic kidney disease or end stage renal disease; N00.8 Acute nephritic syndrome with other morphologic changes; I77.89 Other specified disorders of arteries and arterioles; N18.6 End stage renal disease; J45.909 Unspecified asthma, uncomplicated; E55.9 Vitamin D deficiency, unspecified; E87.6 Hypokalemia; G43.909 Migraine, unspecified, not intractable, without status migrainosus; F15.10 Other stimulant abuse, uncomplicated; F42.9 Obsessive-compulsive disorder, unspecified; G44.209 Tension-type headache, unspecified, not intractable; E88.09 Other disorders of plasma-protein metabolism, not elsewhere classified; D63.1 Anemia in chronic kidney disease; G93.0 Cerebral cysts; E83.39 Other disorders of phosphorus metabolism; E03.9 Hypothyroidism, unspecified; G89.4 Chronic pain syndrome; Z99.2 Dependence on renal dialysis; Z85.41 Personal history of malignant neoplasm of cervix uteri; Z86.14 Personal history of Methicillin resistant Staphylococcus aureus infection; Z90.49 Acquired absence of other specified parts of digestive tract; Z98.890 Other specified postprocedural states; Z22.322 Carrier or suspected carrier of Methicillin resistant Staphylococcus aureus
CPT/HCPCS: 36415; 70450; 71046; 80048; 80053; 80069; 80076; 81001; 82306; 82652; 82728; 83516; 83520; 83540; 83550; 83735; 83970; 84100; 84145; 84443; 85014; 85018; 85025; 85027; 85651; 86140; 86256; 87086; 87340; 94760; 94762; A9270; C9113; J0360; J0881; J1644; J2405; J3010; J7512; J8530

== ENCOUNTER 2021-09-15 17:42 | Emergency (ER) | payer OTHER ==
[~2021-09-15] VITALS: Ht 172.7 cm; Wt 99.8 kg
[~2021-09-15 17:42] MED LIST changes: +BACTRIM 400-801 EACH PO; +CRANBERRY500 M1 PO; +CYCLOPHOSPHAMID50 MG PO; +Calcium Acetat667 MG PO; +FURO40 PO; +LOSA50 PO; +METO50ER PO; +NIFE90ER PO; +PANT20 PO; +TUMS500 MG PO; +Vitamin D1000 UNI1 PO
[2021-09-15 19:33] LABS: BASOPHILS ABSOLUTE AUTO 0.02 K/mm3 (0.00-0.23); BASOPHILS PERCENT AUTO 0 % (0-2); EOSINOPHILS ABSOLUTE AUTO 0.01 K/mm3 (0.00-0.68); EOSINOPHILS PERCENT AUTO 0 % (0-6); Hematocrit 35.5 % (33.0-51.0); Hemoglobin 12.1 g/dL (11.5-16.0); IMMATURE GRAN ABSOLUTE AUTO 0.03 K/mm3 (0.00-0.10); IMMATURE GRAN PERCENT AUTO 0 % (0-1); LYMPHOCYTES ABSOLUTE AUTO 0.76 K/mm3 (0.84-5.20); LYMPHOCYTES PERCENT AUTO 9 % (21-46); MONOCYTES ABSOLUTE AUTO 0.55 K/mm3 (0.16-1.47); MONOCYTES PERCENT AUTO 7 % (4-13); Mean Corpuscular HGB Conc 34.1 g/dL (31.5-36.5); Mean Corpuscular Volume 94 fL (80-100); Mean Platelet Volume 9.7 fL (9.1-12.4); NEUTROPHILS ABSOLUTE AUTO 6.78 K/mm3 (1.96-9.15); NEUTROPHILS PERCENT AUTO 83 % (41-73); Platelet Count 147 K/mm3 (150-400); RDW Coefficient Variation 12.6 % (11.7-14.2); RDW Standard Deviation 43.7 fL (35.1-46.3); Red Blood Cell Count 3.78 M/mm3 (3.80-5.20); White Blood Cell Count 8.15 K/mm3 (4.00-11.30)
[2021-09-15 19:53] LABS: Albumin, Blood 2.8 g/dL (3.4-5.0); Albumin/Globulin Ratio 0.7 (0.8-1.8); Bilirubin, Total 0.5 mg/dL (0.1-1.0); Bun/Creatinine Ratio 11.3 (12.0-20.0); Calcium, Blood 8.6 mg/dL (8.5-10.1); Creatinine, Blood 4.6 mg/dL (0.40-1.00); Globulin, Blood 4.1 g/dL (2.2-4.0); Potassium, Blood 2.9 mmol/L (3.5-5.5); Total Protein, Blood 6.9 g/dL (6.4-8.2)
[2021-09-15 21:50] LABS: Source, Urine Clean Catch
[2021-09-15 21:58] LABS: Bilirubin, Urine Neg (Neg); Blood, Urine 5+ (Neg); Color, Urine Yellow (P-Yellow); Glucose Qualitative, Urine Neg (Neg); Ketones, Urine Neg (Neg); Leukocyte Esterase, Urine Neg (Neg); Nitrite, Urine Neg (Neg); Protein, Urine 4+ (Neg); Urobilinogen, Urine NORM (Normal)
[2021-09-15 22:04] LABS: Appearance, Urine Hazy (Clear)
[2021-09-15 22:06] LABS: Bacteria Many /hpf; Red Blood Cells, Urine 50-100 /hpf (0-2); Squamous Epithelial Cells Few /hpf (Few)
[2021-09-15 22:07] LABS: Amorphous Light (0-Heavy)
[2021-09-15 22:08] LABS: Granular Casts Rare /lpf (0)
[2021-09-15 22:30] LABS: Influenza A, PCR NEGATIVE (NEGATIVE); Influenza B, PCR NEGATIVE (NEGATIVE); Resp Syncytial Virus, PCR NEGATIVE (NEGATIVE); SARS-Cov-2 (COVID-19) PCR, MMC NEGATIVE (NEGATIVE)
[2021-09-15] MEDS ORDERED: CEPH500 PO (22:48)
== END 2021-09-15 22:54 | disposition home or self-care (01) ==
LOC: ER 17:42
PROVIDERS: Physician Assistant
DX: N39.0 Urinary tract infection, site not specified (principal); I12.0 Hypertensive chronic kidney disease with stage 5 chronic kidney disease or end stage renal disease; N18.6 End stage renal disease; E03.9 Hypothyroidism, unspecified; G43.909 Migraine, unspecified, not intractable, without status migrainosus; Z79.899 Other long term (current) drug therapy; Z88.0 Allergy status to penicillin; Z20.822 Contact with and (suspected) exposure to COVID-19
CPT/HCPCS: 0241U; 36415; 71045; 80053; 81001; 85025; 96374; 99283-25; J0696

== ENCOUNTER 2021-10-03 17:43 | Emergency (ER) | payer OTHER ==
[~2021-10-03] VITALS: Ht 172.7 cm; Wt 99.8 kg
[2021-10-03 20:04] LABS: BASOPHILS ABSOLUTE AUTO 0.02 K/mm3 (0.00-0.23); BASOPHILS PERCENT AUTO 0 % (0-2); EOSINOPHILS PERCENT AUTO 0 % (0-6); Hematocrit 36.4 % (33.0-51.0); Hemoglobin 12.2 g/dL (11.5-16.0); IMMATURE GRAN ABSOLUTE AUTO 0.04 K/mm3 (0.00-0.10); IMMATURE GRAN PERCENT AUTO 0 % (0-1); LYMPHOCYTES ABSOLUTE AUTO 0.91 K/mm3 (0.84-5.20); LYMPHOCYTES PERCENT AUTO 9 % (21-46); MONOCYTES ABSOLUTE AUTO 0.45 K/mm3 (0.16-1.47); MONOCYTES PERCENT AUTO 4 % (4-13); Mean Corpuscular HGB 31.6 pg (26.0-34.0); Mean Corpuscular HGB Conc 33.5 g/dL (31.5-36.5); Mean Corpuscular Volume 94 fL (80-100); NEUTROPHILS ABSOLUTE AUTO 9.23 K/mm3 (1.96-9.15); NEUTROPHILS PERCENT AUTO 87 % (41-73); Platelet Count 126 K/mm3 (150-400); RDW Coefficient Variation 12.5 % (11.7-14.2); RDW Standard Deviation 43.5 fL (35.1-46.3); Red Blood Cell Count 3.86 M/mm3 (3.80-5.20); White Blood Cell Count 10.65 K/mm3 (4.00-11.30)
[2021-10-03 21:05] LABS: Source, Urine Clean Catch
[2021-10-03 21:05] LABS: Albumin, Blood 2.9 g/dL (3.4-5.0); Albumin/Globulin Ratio 0.7 (0.8-1.8); Bilirubin, Total 0.5 mg/dL (0.1-1.0); Bun/Creatinine Ratio 7.2 (12.0-20.0); Calcium, Blood 8.8 mg/dL (8.5-10.1); Creatinine, Blood 4.59 mg/dL (0.40-1.00); Globulin, Blood 4.3 g/dL (2.2-4.0); Potassium, Blood 3.1 mmol/L (3.5-5.5); Total Protein, Blood 7.2 g/dL (6.4-8.2)
[2021-10-03 21:07] LABS: Bilirubin, Urine Neg (Neg); Blood, Urine 5+ (Neg); Glucose Qualitative, Urine Neg (Neg); Ketones, Urine 1+ (Neg); Leukocyte Esterase, Urine 2+ (Neg); Nitrite, Urine Pos (Neg); Protein, Urine 4+ (Neg); Specific Gravity, Urine 1.015 (1.003-1.022); Urobilinogen, Urine 1+ (Normal)
[2021-10-03 21:21] LABS: Appearance, Urine Hazy (Clear); Color, Urine Yellow (P-Yellow)
[2021-10-03 21:22] LABS: Red Blood Cells, Urine TNTC /hpf (0-2)
[2021-10-03 21:23] LABS: Bacteria Many /hpf; Squamous Epithelial Cells Few /hpf (Few)
[2021-10-03] MEDS ORDERED: CEPH250A PO (21:44)
== END 2021-10-03 23:30 | disposition home or self-care (01) ==
LOC: ER 17:43
PROVIDERS: Emergency Medicine; Physician Assistant
DX: N12 Tubulo-interstitial nephritis, not specified as acute or chronic (principal); I10 Essential (primary) hypertension; J45.909 Unspecified asthma, uncomplicated
CPT/HCPCS: 36415; 74176; 80053; 81001; 85025; 87086; 96372; 99284-25; A9270; J0696; J1885

== ENCOUNTER 2021-10-08 15:27 | Emergency (ER) | payer OTHER ==
[~2021-10-08] VITALS: Ht 172.7 cm; Wt 99.8 kg
[~2021-10-08 15:27] MED LIST changes: +CEPH250A PO
[2021-10-08 16:31] LABS: BASOPHILS ABSOLUTE AUTO 0.01 K/mm3 (0.00-0.23); BASOPHILS PERCENT AUTO 0 % (0-2); EOSINOPHILS ABSOLUTE AUTO 0.18 K/mm3 (0.00-0.68); EOSINOPHILS PERCENT AUTO 4 % (0-6); Hemoglobin 11.1 g/dL (11.5-16.0); IMMATURE GRAN ABSOLUTE AUTO 0.03 K/mm3 (0.00-0.10); IMMATURE GRAN PERCENT AUTO 1 % (0-1); LYMPHOCYTES ABSOLUTE AUTO 0.88 K/mm3 (0.84-5.20); LYMPHOCYTES PERCENT AUTO 18 % (21-46); MONOCYTES ABSOLUTE AUTO 0.57 K/mm3 (0.16-1.47); MONOCYTES PERCENT AUTO 12 % (4-13); Mean Corpuscular HGB 31.7 pg (26.0-34.0); Mean Corpuscular HGB Conc 34.7 g/dL (31.5-36.5); Mean Corpuscular Volume 91 fL (80-100); Mean Platelet Volume 11.5 fL (9.1-12.4); NEUTROPHILS ABSOLUTE AUTO 3.24 K/mm3 (1.96-9.15); NEUTROPHILS PERCENT AUTO 66 % (41-73); Platelet Count 198 K/mm3 (150-400); RDW Coefficient Variation 13.4 % (11.7-14.2); RDW Standard Deviation 45.2 fL (35.1-46.3); White Blood Cell Count 4.91 K/mm3 (4.00-11.30)
[2021-10-08 16:43] LABS: Albumin, Blood 2.1 g/dL (3.4-5.0); Albumin/Globulin Ratio 0.5 (0.8-1.8); Bilirubin, Total 0.8 mg/dL (0.1-1.0); Bun/Creatinine Ratio 9.9 (12.0-20.0); Calcium, Blood 8.7 mg/dL (8.5-10.1); Creatinine, Blood 4.46 mg/dL (0.40-1.00); Globulin, Blood 4.6 g/dL (2.2-4.0); Potassium, Blood 4.6 mmol/L (3.5-5.5); Total Protein, Blood 6.7 g/dL (6.4-8.2)
[2021-10-08 17:32] LABS: Source, Urine Clean Catch
[2021-10-08 17:54] LABS: Appearance, Urine Clear (Clear); Bilirubin, Urine Neg (Neg); Blood, Urine 5+ (Neg); Color, Urine Yellow (P-Yellow); Glucose Qualitative, Urine Neg (Neg); Ketones, Urine Neg (Neg); Leukocyte Esterase, Urine Neg (Neg); Nitrite, Urine Neg (Neg); Protein, Urine 3+ (Neg); Urobilinogen, Urine NORM (Normal)
[2021-10-08 18:11] LABS: Red Blood Cells, Urine 25-50 /hpf (0-2)
[2021-10-08 18:12] LABS: Bacteria Few /hpf; Squamous Epithelial Cells Mod /hpf (Few)
== END 2021-10-08 21:46 | disposition home or self-care (01) ==
LOC: ER 15:27
PROVIDERS: Physician Assistant
DX: K59.00 Constipation, unspecified (principal); N12 Tubulo-interstitial nephritis, not specified as acute or chronic; I10 Essential (primary) hypertension; E03.9 Hypothyroidism, unspecified; G43.909 Migraine, unspecified, not intractable, without status migrainosus; Z88.0 Allergy status to penicillin; Z79.899 Other long term (current) drug therapy; Z87.891 Personal history of nicotine dependence
CPT/HCPCS: 36415; 74018; 80053; 81001; 83605; 85025; 87086; 96374; 99284-25; A9270; J2405

== ENCOUNTER 2021-10-15 10:32 | Emergency (ER) | payer OTHER ==
[~2021-10-15] VITALS: Ht 172.7 cm; Wt 124.7 kg
[2021-10-15 10:59] LABS: BASOPHILS ABSOLUTE AUTO 0.04 K/mm3 (0.00-0.23); BASOPHILS PERCENT AUTO 0 % (0-2); EOSINOPHILS ABSOLUTE AUTO 0.07 K/mm3 (0.00-0.68); EOSINOPHILS PERCENT AUTO 0 % (0-6); Hematocrit 34.9 % (33.0-51.0); Hemoglobin 11.2 g/dL (11.5-16.0); IMMATURE GRAN ABSOLUTE AUTO 0.07 K/mm3 (0.00-0.10); IMMATURE GRAN PERCENT AUTO 0 % (0-1); LYMPHOCYTES ABSOLUTE AUTO 1.17 K/mm3 (0.84-5.20); LYMPHOCYTES PERCENT AUTO 7 % (21-46); MONOCYTES ABSOLUTE AUTO 0.69 K/mm3 (0.16-1.47); MONOCYTES PERCENT AUTO 4 % (4-13); Mean Corpuscular HGB 31.5 pg (26.0-34.0); Mean Corpuscular HGB Conc 32.1 g/dL (31.5-36.5); Mean Corpuscular Volume 98 fL (80-100); Mean Platelet Volume 9.7 fL (9.1-12.4); NEUTROPHILS ABSOLUTE AUTO 13.89 K/mm3 (1.96-9.15); NEUTROPHILS PERCENT AUTO 87 % (41-73); Platelet Count 320 K/mm3 (150-400); RDW Coefficient Variation 14.3 % (11.7-14.2); RDW Standard Deviation 51.1 fL (35.1-46.3); Red Blood Cell Count 3.56 M/mm3 (3.80-5.20); White Blood Cell Count 15.93 K/mm3 (4.00-11.30)
[2021-10-15 11:31] LABS: Albumin, Blood 2.9 g/dL (3.4-5.0); Albumin/Globulin Ratio 0.6 (0.8-1.8); Bilirubin, Total 0.5 mg/dL (0.1-1.0); Bun/Creatinine Ratio 7.3 (12.0-20.0); Calcium, Blood 9.6 mg/dL (8.5-10.1); Creatinine, Blood 4.22 mg/dL (0.40-1.00); Globulin, Blood 4.7 g/dL (2.2-4.0); Potassium, Blood 4.1 mmol/L (3.5-5.5); Total Protein, Blood 7.6 g/dL (6.4-8.2)
[2021-10-15 13:06] LABS: Source, Urine Voided
[2021-10-15 13:16] LABS: Appearance, Urine Hazy (Clear); Bilirubin, Urine Neg (Neg); Blood, Urine 5+ (Neg); Color, Urine Yellow (P-Yellow); Glucose Qualitative, Urine Neg (Neg); Ketones, Urine Neg (Neg); Leukocyte Esterase, Urine Neg (Neg); Nitrite, Urine Neg (Neg); Protein, Urine 4+ (Neg); Urobilinogen, Urine NORM (Normal)
[2021-10-15 13:36] LABS: Red Blood Cells, Urine 50-100 /hpf (0-2); Squamous Epithelial Cells Many /hpf (Few); White Blood Cells, Urine 0-2 /hpf (0-5)
[2021-10-15 13:40] LABS: Bacteria Mod /hpf; Transitional Epithelial Cells Rare /hpf (0-Rare)
== END 2021-10-15 17:10 | disposition home or self-care (01) ==
LOC: ER 10:32
PROVIDERS: Emergency Medicine
DX: M54.9 Dorsalgia, unspecified (principal); I12.0 Hypertensive chronic kidney disease with stage 5 chronic kidney disease or end stage renal disease; N18.6 End stage renal disease; E03.9 Hypothyroidism, unspecified; Z99.2 Dependence on renal dialysis; Z88.0 Allergy status to penicillin; Z79.899 Other long term (current) drug therapy
CPT/HCPCS: 36415; 71045; 74176; 80053; 81001; 81025; 83690; 85025; 87086; 93005; 93010; 96374; 96375; 99284-25; J1170; J1790

== ENCOUNTER 2021-11-07 15:36 | Emergency (ER) | payer OTHER ==
[~2021-11-07] VITALS: Ht 172.7 cm; Wt 97.5 kg
[2021-11-07 16:42] LABS: BASOPHILS ABSOLUTE AUTO 0.06 K/mm3 (0.00-0.23); BASOPHILS PERCENT AUTO 0 % (0-2); EOSINOPHILS ABSOLUTE AUTO 0.01 K/mm3 (0.00-0.68); EOSINOPHILS PERCENT AUTO 0 % (0-6); Hematocrit 32.3 % (33.0-51.0); Hemoglobin 10.6 g/dL (11.5-16.0); IMMATURE GRAN ABSOLUTE AUTO 0.35 K/mm3 (0.00-0.10); IMMATURE GRAN PERCENT AUTO 1 % (0-1); LYMPHOCYTES ABSOLUTE AUTO 1.19 K/mm3 (0.84-5.20); LYMPHOCYTES PERCENT AUTO 4 % (21-46); MONOCYTES ABSOLUTE AUTO 1.03 K/mm3 (0.16-1.47); MONOCYTES PERCENT AUTO 3 % (4-13); Mean Corpuscular HGB 30.5 pg (26.0-34.0); Mean Corpuscular HGB Conc 32.8 g/dL (31.5-36.5); Mean Corpuscular Volume 93 fL (80-100); Mean Platelet Volume 11.5 fL (9.1-12.4); NEUTROPHILS ABSOLUTE AUTO 28.07 K/mm3 (1.96-9.15); NEUTROPHILS PERCENT AUTO 91 % (41-73); NRBC ABSOLUTE 0.03 K/mm3 (0.00-0.02); NRBC Auto 0.1 /100 WBC (0.0-0.2); Platelet Count 211 K/mm3 (150-400); RDW Coefficient Variation 15.3 % (11.7-14.2); Red Blood Cell Count 3.48 M/mm3 (3.80-5.20); White Blood Cell Count 30.71 K/mm3 (4.00-11.30)
[2021-11-07 17:05] LABS: Albumin, Blood 1.7 g/dL (3.4-5.0); Albumin/Globulin Ratio 0.3 (0.8-1.8); Bilirubin, Total 0.9 mg/dL (0.1-1.0); Bun/Creatinine Ratio 11.8 (12.0-20.0); Calcium, Blood 8.4 mg/dL (8.5-10.1); Creatinine, Blood 3.8 mg/dL (0.40-1.00); Globulin, Blood 5.5 g/dL (2.2-4.0); Potassium, Blood 4.8 mmol/L (3.5-5.5); Total Protein, Blood 7.2 g/dL (6.4-8.2)
[2021-11-07 19:12] LABS: Source, Urine Foley catheter
[2021-11-07 19:19] LABS: Appearance, Urine Cloudy (Clear); Bilirubin, Urine Neg (Neg); Blood, Urine 5+ (Neg); Color, Urine Yellow (P-Yellow); Glucose Qualitative, Urine Neg (Neg); Ketones, Urine Neg (Neg); Leukocyte Esterase, Urine 3+ (Neg); Nitrite, Urine Neg (Neg); Protein, Urine 3+ (Neg); Urobilinogen, Urine NORM (Normal); pH, Urine 6.5 (5.0-8.0)
[2021-11-07 19:53] LABS: U Amphetamine Screen DETECTED; U Barbituate Screen Not Detected; U Benzodiazapine Screen Not Detected; U Buprenorphine Screen Not Detected; U Cannabinoids Screen Not Detected; U Cocaine Screen Not Detected; U Methadone Screen Not Detected; U Methamphetamine Screen DETECTED; U Opiates Screen Not Detected; U Oxycodone Screen Not Detected; U Phencyclidine Screen Not Detected; U Propoxyphene Screen Not Detected
[2021-11-07 19:58] LABS: Red Blood Cells, Urine 50-100 /hpf (0-2); White Blood Cells, Urine 50-100 /hpf (0-5)
[2021-11-07 19:59] LABS: Bacteria Many /hpf; Squamous Epithelial Cells Mod /hpf (Few)
== END 2021-11-07 21:55 | disposition home or self-care (01) ==
LOC: ER 15:36
PROVIDERS: Emergency Medicine; Physician Assistant
DX: G83.4 Cauda equina syndrome (principal); A41.9 Sepsis, unspecified organism; N39.0 Urinary tract infection, site not specified; F15.10 Other stimulant abuse, uncomplicated; I12.0 Hypertensive chronic kidney disease with stage 5 chronic kidney disease or end stage renal disease; N18.6 End stage renal disease; E03.9 Hypothyroidism, unspecified; J45.909 Unspecified asthma, uncomplicated; Z87.891 Personal history of nicotine dependence; Z99.2 Dependence on renal dialysis; Z79.899 Other long term (current) drug therapy; Z79.52 Long term (current) use of systemic steroids
CPT/HCPCS: 36415; 51701; 80053; 81001; 83605; 83690; 85025; 87077; 87086; 87186; 94640; 94664; A9270; J0696; J1170; J2405